=== PATIENT | female | born 1935 | race Caucasian/White ===

== ENCOUNTER 2016-08-20 13:27 | Observation (INO) ==
[2016-08-20 14:10] LABS: Basophils % 0.4 %; Eosinophils # 0.1 K/mcL (0.0-0.6); Eosinophils % 1.4 %; Hematocrit 37.7 % (35.3-44.9); Hemoglobin 11.5 g/dL (11.5-15.4); Immature Granulocytes % 0.4 % (0-4); Lymphocytes # 1.1 K/mcL (0.6-4.6); Lymphocytes % 11.6 %; Mean Corpuscular HGB Conc 30.5 g/dL (31.6-35.5); Mean Corpuscular Hemoglobin 25.3 pg (28.0-33.3); Mean Platelet Volume 13.2 fL (9.4-12.4); Monocytes # 0.4 K/mcL (0.0-1.3); Neutrophils # 7.7 K/mcL (1.6-8.9); Platelet Count 227 K/mcL (140-400); Red Blood Count 4.54 M/mcL (3.82-4.97); Red Cell Distribution Width 13.5 % (11.5-14.5); Segmented Neutrophils % 82.2 %
[2016-08-20 14:25] LABS: Albumin 3.6 g/dL (3.5-5.0); Albumin/Globulin Ratio 0.9 (1.1-2.2); Alkaline Phosphatase 70 Units/L (38-126); Aspartate Amino Transferase 7 Units/L (5-34); BUN/Creatinine Ratio 14 (6-26); Bilirubin,Total 0.3 mg/dL (0.2-1.2); Blood Urea Nitrogen 29 mg/dL (7-20); Calcium 9.7 mg/dL (8.6-10.8); Carbon Dioxide 26 mEq/L (19-29); Chloride 95 mEq/L (98-109); Globulin 4.2 g/dL (2.4-3.5); Osmolality,Calculated 302 (280-300); Potassium 5.2 mEq/L (3.5-4.5); Sodium 130 mEq/L (136-145); Total Protein 7.8 g/dL (6.0-8.3); eGFR For African Americans 29 (> 60); eGFR For Non-African Americans 24 (> 60)
[2016-08-20 14:27] LABS: Alanine Aminotransferase < 6 Units/L (0-55)
[2016-08-20 14:29] LABS: Glucose 572 mg/dL (70-99)
--- NOTE | 2016-08-20 15:05 | Emergency Department Note ---
Disposition Clinical Impression: Diabetes mellitus, Cellulitis in diabetic foot, Frail elderly, Uncontrolled diabetes mellitus, Renal failure, Hyperkalemia, Weakness Disposition: Admitted As Inpatient Referrals: NO,PCP [Non-Partnered Physician] - Forms: ED Satisfaction Letter General Adult HPI - General Chief complaint: ED Extremity Problem,Nontraumatic Stated complaint: INFECTED TOE Time Seen by Provider: 08/20/16 15:04 Source: patient Limitations: no limitations - History of Present Illness HPI Narrative: 80-year-old female history of diabetes mellitus comes in with concerns for an infected toe, she has left foot redness. There is no history of trauma. The patient has also been coughing a lot, she has chronic diarrhea which has been nonbloody she is not anticoagulated. There is no history of fever chest pain or shortness of breath no abdominal pain or vomiting. The patient is somewhat demented per history, she also has parkinsonism, the patient has been progressively weaker, she has a history of renal insufficiency but is not on dialysis. There is no history of fall or syncope. No history of headache convulsion or rash. No difficulty moving arms or legs independently. No slurred speech or unilateral arm or leg weakness or numbness. The patient's daughter is here with her she is concerned about infection of the left foot and generalized weakness. The patient's daughter augments the history. Pain Scale: 10 - Related Data Home Medications Medication Instructions Recorded Confirmed Citalopram Hydrobromide [Celexa] 20 mg PO DAILY 11/27/14 04/20/16 Aspirin [Adult Low Dose Aspirin EC] 81 mg PO QAM 02/21/15 04/20/16 Atorvastatin [Lipitor] 10 mg PO HS 02/21/15 04/20/16 Insulin Aspart Prot/Insuln Asp 1 unit SQ TIDAC PRN 02/21/15 04/20/16 [Novolog Mix 70-30 Flexpen Syrn] Insulin Glargine,Hum.rec.anlog 12 unit SQ HS 02/21/15 04/20/16 [Lantus Solostar] Levothyroxine [Synthroid] 25 mcg PO QAM 02/21/15 04/20/16 Spironolact/Hydrochlorothiazid 1 each PO QAM 02/21/15 04/20/16 [Aldactazide 25-25 Tablet] Previous Rx's Medication Instructions Recorded HYDROcodone/Acet 5/325 mg [White 1 tab PO Q4H PRN #15 tab 04/20/16 5-325 mg] Allergies Allergy/AdvReac Type Severity Reaction Status Date / Time codeine Allergy Rash Verified 04/20/16 17:13 All systems ED: reviewed and negative except as stated. Past Medical History - Past Medical History Medical history: Reports: COPD, CVA, dementia, diabetes, hyperlipidemia, hypertension, renal disease Surgical history: Reports: cholecystectomy Psychiatric history: Reports: anxiety, depression [employer] PLANT ATTENDANT history: Reports: no SEW[employer] PLANT ATTENDANT history - Social History Smoking Status: Current every day smoker Smokeless Tobacco Status: No Alcohol use: Reports: none Drug use: Reports: none Physical Exam - General Limitations: no limitations General appearance: alert, in no apparent distress - Head Head exam: atraumatic, normocephalic, normal inspection - Eye Eye exam: Present: normal appearance, PERRL, EOMI, miosis. Absent: scleral icterus, conjunctival injection, mydriasis, periorbital swelling - ENT ENT exam: normal exam, normal oropharynx, mucous membranes moist, TM's normal bilaterally, normal external ear exam - Neck Neck exam: Present: normal inspection, full ROM, trachea midline. Absent: tenderness, meningismus - Chest Chest inspection: Present: symmetric chest wall rise. Absent: tenderness - Respiratory Respiratory exam: Present: normal lung sounds bilaterally. Absent: respiratory distress, wheezes, stridor, accessory muscle use, prolonged expiratory phase - Cardiovascular Cardiovascular exam: Present: regular rate, normal rhythm, normal heart sounds - Abdominal Exam Abdominal exam: Present: soft, Non-Tender, normal bowel sounds. Absent: tenderness, distention, guarding, rebound, rigidity, pulsatile mass - Extremities Exam Extremities exam: Present: normal inspection, full ROM, normal capillary refill. Absent: tenderness, joint swelling, calf tenderness - Expanded Lower Extremity Exam Hip/Pelvis exam: Present: full ROM. Absent: tenderness Upper leg exam: Present: full ROM. Absent: tenderness Knee exam: Present: full ROM. Absent: tenderness Lower leg exam: Present: full ROM. Absent: tenderness, Homans' sign Ankle exam: Present: full ROM. Absent: tenderness Foot/toe exam: Present: full ROM, swelling, erythema, other (The left foot shows some erythema about the heel lateral foot and around the great toe. There is no evidence of acute neurovascular or neuromuscular compromise. The right foot is generally unremarkable.). Absent: tenderness Neurovascular/Tendon exam: Present: normal capillary refill. Absent: motor deficit, sensory deficit, tendon deficit, extremity cold to touch, pallor - Back Exam Back exam: Present: normal inspection, full ROM. Absent: tenderness, CVA tenderness (R), CVA tenderness (L), vertebral tenderness - Neurological Exam Neurological exam: Present: alert, CN II-XII intact. Absent: motor sensory deficit - Psychiatric Psychiatric exam: Present: normal affect - Skin Skin exam: Present: warm, dry, intact, normal color. Absent: rash, cyanosis, diaphoresis, erythema, pallor, mottled Course Vital Signs Temperature 98.3 F 08/20/16 13:28 Pulse Rate 93 08/20/16 13:28 Respiratory Rate 22 08/20/16 13:28 Blood Pressure 118/66 08/20/16 13:28 O2 Sat by Pulse Oximetry 96 08/20/16 13:28 Temperature 98.3 F 08/20/16 13:28 Pulse Rate 82 08/20/16 16:05 Respiratory Rate 16 08/20/16 15:20 Blood Pressure 145/70 08/20/16 16:05 O2 Sat by Pulse Oximetry 98 08/20/16 16:05 Oxygen Delivery Oxygen Delivery Room Air Medical Decision Making - [facility] Narrative Medical decision making narrative: The patient is elderly, has apparent uncontrolled diabetes mellitus, as well as a left foot infection, she also has significant renal insufficiency. There is a negative White cell count and lactate, I do not believe the patient is frankly septic, it is notable that her CRP is 57 however, clindamycin and IV fluids were given. She described a cough, EKG and chest x-ray are negative, she has known COPD. Based on the patient's age, history of metabolic disorder/ diabetes mellitus, glucose of 572 indicating poor control, cellulitis left foot , age and multiple comorbidities, as well as renal failure, I thought it be appropriate to admit the patient to the hospital. I discussed the case with the hospitalist on-call who is accepted the patient to their care. - Lab Data Lab results reviewed: Yes I reviewed the patient's lab results. Result diagrams: 08/20/16 14:02 08/20/16 14:02 Lab Results 08/20/16 08/20/16 08/20/16 Range/Units 14:02 14:02 14:02 WBC 9.4 (4.3-11.1) K/mcL RBC 4.54 (3.82-4.97) M/mcL Hgb 11.5 (11.5-15.4) g/dL Hct 37.7 (35.3-44.9) % MCV 83.0 (83.0-100.0) fL MCH 25.3 L (28.0-33.3) pg MCHC 30.5 L (31.6-35.5) g/dL RDW 13.5 (11.5-14.5) % Plt Count 227 (140-400) K/mcL MPV 13.2 H (9.4-12.4) fL Immature Gran % 0.4 (0-4) % Seg Neutrophils % 82.2 % Lymphocytes % 11.6 % Monocytes % 4.0 % Eosinophils % 1.4 % Basophils % 0.4 % Neutrophils # 7.7 (1.6-8.9) K/mcL Lymphocytes # 1.1 (0.6-4.6) K/mcL Monocytes # 0.4 (0.0-1.3) K/mcL Eosinophils # 0.1 (0.0-0.6) K/mcL Basophils # 0.0 (0.0-0.2) K/mcL Sodium 130 L (136-145) mEq/L Potassium 5.2 H (3.5-4.5) mEq/L Chloride 95 L (98-109) mEq/L Carbon Dioxide 26 (19-29) mEq/L BUN 29 H (7-20) mg/dL Creatinine 2.01 H (0.57-1.11) mg/dL Est GFR ( Amer) 29 L (> 60) Est GFR (Non-Af Amer) 24 L (> 60) BUN/Creatinine Ratio 14 (6-26) Glucose 572 H* (70-99) mg/dL Calculated Osmolality 302 H (280-300) Lactic Acid 0.8 (0.5-2.2) mmol/L Calcium 9.7 (8.6-10.8) mg/dL Total Bilirubin 0.3 (0.2-1.2) mg/dL AST 7 (5-34) Units/L ALT < 6 (0-55) Units/L Alkaline Phosphatase 70 (38-126) Units/L Troponin I (0-0.03) ng/mL C-Reactive Protein 57 H (Less than 5) mg/L B-Natriuretic Peptide (0-100) pg/mL Serum Total Protein 7.8 (6.0-8.3) g/dL Albumin 3.6 (3.5-5.0) g/dL Globulin 4.2 H (2.4-3.5) g/dL Albumin/Globulin Ratio 0.9 L (1.1-2.2) 08/20/16 08/20/16 Range/Units 16:00 16:00 WBC (4.3-11.1) K/mcL RBC (3.82-4.97) M/mcL Hgb (11.5-15.4) g/dL Hct (35.3-44.9) % MCV (83.0-100.0) fL MCH (28.0-33.3) pg MCHC (31.6-35.5) g/dL RDW (11.5-14.5) % Plt Count (140-400) K/mcL MPV (9.4-12.4) fL Immature Gran % (0-4) % Seg Neutrophils % % Lymphocytes % % Monocytes % % Eosinophils % % Basophils % % Neutrophils # (1.6-8.9) K/mcL Lymphocytes # (0.6-4.6) K/mcL Monocytes # (0.0-1.3) K/mcL Eosinophils # (0.0-0.6) K/mcL Basophils # (0.0-0.2) K/mcL Sodium (136-145) mEq/L Potassium (3.5-4.5) mEq/L Chloride (98-109) mEq/L Carbon Dioxide (19-29) mEq/L BUN (7-20) mg/dL Creatinine (0.57-1.11) mg/dL Est GFR ( Amer) (> 60) Est GFR (Non-Af Amer) (> 60) BUN/Creatinine Ratio (6-26) Glucose (70-99) mg/dL Calculated Osmolality (280-300) Lactic Acid (0.5-2.2) mmol/L Calcium (8.6-10.8) mg/dL Total Bilirubin (0.2-1.2) mg/dL AST (5-34) Units/L ALT (0-55) Units/L Alkaline Phosphatase (38-126) Units/L Troponin I 0.01 (0-0.03) ng/mL C-Reactive Protein (Less than 5) mg/L B-Natriuretic Peptide 63 (0-100) pg/mL Serum Total Protein (6.0-8.3) g/dL Albumin (3.5-5.0) g/dL Globulin (2.4-3.5) g/dL Albumin/Globulin Ratio (1.1-2.2) - Radiology Data Radiology results reviewed: Yes I reviewed the patient's radiology results.
[2016-08-20] MEDS ORDERED: 0.9 % Sodium Chloride 1,000 ML IVC ONE ×2 (15:06→19:29)
[2016-08-20 15:25] LABS: C-Reactive Protein 57 mg/L (Less than 5)
[2016-08-20] MEDS ORDERED: Clindamycin 300 MG in D5% in Water 50 ML IVPB ONE (15:25)
[2016-08-20] MEDS ORDERED: Insulin Regular, Human 100 UNIT/ML SQ ONE (15:27)
[2016-08-20] MEDS ORDERED: Clindamycin 300 MG in D5% in Water 50 ML IVPB SCH (16:00)
[2016-08-20] MEDS ORDERED: Acetaminophen 325 MG TABLET PO PRN (19:17)
[2016-08-20] MEDS ORDERED: Ondansetron 4 MG/2 ML VIAL IVP PRN (19:17)
[2016-08-20] MEDS ORDERED: Naloxone 0.4 MG/ML INJ IVP PRN (19:17)
[2016-08-20] MEDS ORDERED: D5% in Water 1,000 ML IVC PRN (19:23)
[2016-08-20] MEDS ORDERED: *HR* Dextrose 50 % in Water (Syg) 50 ML SYRINGE IVP PRN (19:23)
[2016-08-20] MEDS ORDERED: Dextrose Gel 15 GM PO PRN ×2 (19:23)
[2016-08-20] MEDS ORDERED: Calcium Gluconate 1,000 MG in D5% in Water 100 ML IVPB ONE (19:30)
--- NOTE | 2016-08-20 19:52 | Event Note ---
Date of Encounter: 08/20/16 Time of Encounter: 19:50 Patient seen and examined with nurse practitioner. Hyperglycemic hypos Soni state and acute kidney injury. Will give 2 L bolus of normal saline. No gap. She was hypercalcemic potassium 5.2 this will be corrected and rechecked. There was concern for cellulitis. There is slight redness in the right great toe but no warmth. There is also some softening of tissue in the heel which I suspect is due to pressure effect. I would hold of antibiotics for now. Check urine analysis. Podiatry to see the patient
--- NOTE | 2016-08-20 19:57 | Internal Med History&Physical ---
Date of Encounter: 08/20/16 Time of Encounter: 18:30 Assessment and Plan (1) Foot pain, left Current visit: Yes Status: Acute Patient presents with acute pain in left great toe as well as left heel. Patient currently has thick unkept toenails on left great toe which may be contributed to her pain. Left heel pain presents as possible diabetic foot ulcer. Patient presently is a mild split in the skin with tenderness. Patient received IV clindamycin in the ED. Podiatry consult ordered and discussed with Dr. Olsen. Will continue IV antibiotics based on blood culture results and recommendations of Dr. Olsen. Currently, patient's WBC is 9.4, temp is 98.3F, RR is 16, HR is 82, and SpO2 is 98% on room air. Patient to be monitored closely for signs of infection or increased discomfort. Patient placed as falls precautions/up with assist/bedrest with bedside commode with assist only. (2) Uncontrolled diabetes mellitus Current visit: Yes Status: Acute Patient presents with history of uncontrolled diabetes mellitus. She reports she was previously on insulin but her PCP placed her on oral hyperglycemics. Blood glucose on admission to ED was 572. Following 10 units of insulin, blood glucose was 300. Patient to have blood glucose monitoring and low-dose insulin correction dosing every 4. Diabetic diet ordered. Diabetic education consult placed. Qualifiers: Diabetes mellitus type: type 2 Diabetes mellitus complication status: with kidney complications Diabetes mellitus complication detail: with chronic kidney disease Diabetes mellitus prison insulin use: unspecified long term care pharmacist insulin use status Chronic kidney disease stage: stage 4 (severe) Qualified Code(s): E11.22 - Type 2 diabetes mellitus with diabetic chronic kidney disease ; E11.65 - Type 2 diabetes mellitus with hyperglycemia; N18.4 - Chronic kidney disease, stage 4 (severe) (3) Hyperkalemia Current visit: Yes Status: Acute Patient presents with acute hyperkalemia. Patient to receive IV fluids judiciously. Will monitor potassium level in follow-up labs. (4) Weakness Current visit: Yes Status: Acute Patient presents with generalized weakness. Patient to be placed on falls precautions/up with assist/bedrest with bedside commode with assist only due to weakness and left foot pain. (5) Hypertension Current visit: Yes Status: Chronic Patient presents with history of chronic hypertension. Will monitor patient's BP and vital signs and continue her spironolactone. Qualifiers: Hypertension type: essential hypertension Qualified Code(s): I10 - Essential (primary) hypertension (6) Chronic renal disease, stage 4, severely decreased glomerular filtration rate (GFR) between 15-29 mL/min/1.73 square meter Current visit: Yes Status: Chronic Patient presents with history of chronic kidney disease, stage IV with current GFR of 24. Patient currently has uncontrolled diabetes as well which is contributing to her acute on chronic CKD status. Will monitor I&O and daily weight and use IV fluids judiciously. Renal diet ordered. (7) Hyperlipidemia Current visit: Yes Status: Acute Patient presents with history of chronic hyperlipidemia. Lipid panel ordered. Will continue patient's TriCor and Lipitor. Qualifiers: Hyperlipidemia type: pure hypercholesterolemia Qualified Code(s): E78.00 - Pure hypercholesterolemia, unspecified; E78.0 - Pure hypercholesterolemia (8) Thyroid disease Current visit: Yes Status: Acute Patient presents with history of chronic thyroid disease. Will continue patient 's Synthroid. (9) DVT prophylaxis Current visit: Yes Status: Acute Patient placed on DVT prophylaxis due to admission protocol and current bedrest status. Heparin 5,000 units SQ Q8 ordered. Internal Medicine - H&P: HPI Chief complaint: Painful toe and heel on left foot Admitted From: Emergency Dept Plans for Post Hospital Care: Home History of present illness: Mrs. Guzmán is a 80 year old female who presents from the ED with chief complaint of pain in her left great toe and left heel. Both toe and heel are edematous and erythematous, as well as painful with palpation. She states that the pain began approximately one week ago and is accompanied by nausea but no vomiting. She also states that she has pain in her left ear that she feels may be infected. Patient is currently hard of hearing bilaterally and states that she does not wear hearing aids because they broke. Patient's blood glucose is 572 on admission to the ED and she states that her doctor took her off insulin and put her on an oral pill for her diabetes. She states that her blood glucose is usually around 200 in the morning when she checks it before taking her Januvia. Patient's med list also includes Lantus Solostar. She reports cough and mild abdominal pain that accompanies the nausea but denies vomiting, fever, recent illness, numbness, tingling, chest pain, pre-syncope, or syncope. She also reports some fall history. Mrs. Guzmán has a medical history of COPD, CVA in 1998 with continued weakness in left arm, dementia, diabetes, hyperlipidemia , hypertension, thyroid disease, and renal disease. She also reports anxiety and depression. Patient states she was a former smoker smoking 1-1/2 packs per day but quit one year ago. Patient received IV clindamycin in the ED for suspicion of infected toe. Will consider continuing IV antibiotics based on blood culture results. Patient is at moderate risk based on her current acute on chronic CKD and foot pain. She will be placed as observation status with consult to podiatry ordered and discussed with Dr. Olsen. Patient to receive IV fluids, pain medication, blood glucose monitoring and low-dose correction insulin every 4, IV Zofran PRN and IV Protonix 40 mg daily, and will be placed as falls precautions/up with assist/bedrest with bedside commode with assist due to instability related to left foot pain. Patient's current GFR is 24 and creatinine is 2.01. IV fluids to be used judiciously to advanced renal disease. Patient to be monitored closely. Time spent with patient greater than 40 minutes. Past Med Surg Social Fam HX - Past Medical History Source: patient Medical history: COPD, CVA, dementia, diabetes, hyperlipidemia, hypertension, renal disease Psychiatric history: anxiety, depression - Past Surgical History Surgical History: cholecystectomy - Social History Smoking Status: Former smoker Packs per day: 1 /2 PPD - Reports quitting 1 year ago Smokeless Tobacco Status: No Alcohol use: none Drug use: none Current living situation: Home, With Family Activity Level: Uses cane/walker Recent Out of Country Travel Within the Last 8 Weeks: No Exposure or Possible Exposure to Illness During Travel: No - Family History Mother Race: Family Member Ethnicity: Non- Living Status: Age at : 62 Cause of : DM complications Hx Family Endocrine Disorder: Yes (DM) Hx Family Neuromuscular Disorders: No Hx Family Neurologic Disorders: No Hx Family HEENT Disorders: No Hx Family Autoimmune Disorders: No Father Race: Family Member Ethnicity: Non- Living Status: Age at : 90 Cause of : Cancer of the head Hx Family Cancer: Yes (Head) Brother Race: Family Member Ethnicity: Non- Living Status: Age at : 70 Cause of : Throat cancer Hx Family Cancer: Yes (Throat, Lung) Hx Family Endocrine Disorder: Yes (DM) Sister Race: Family Member Ethnicity: Non- Living Status: Still Living Hx Family Endocrine Disorder: Yes (DM) Internal Medicine - H&P: Meds Citalopram Hydrobromide [Celexa] 20 mg PO DAILY 11/27/14 [History] Aspirin [Adult Low Dose Aspirin EC] 81 mg PO QAM 02/21/15 [History] Atorvastatin [Lipitor] 10 mg PO HS 02/21/15 [History] Insulin Glargine,Hum.rec.anlog [Lantus Solostar] 12 unit SQ HS 02/21/15 [History ] Levothyroxine [Synthroid] 25 mcg PO QAM 02/21/15 [History] Spironolact/Hydrochlorothiazid [Aldactazide 25-25 Tablet] 1 each PO QAM [History] Carbidopa/Levodopa [Carbidopa-Levodopa 25-100 Tab] 1 each PO TID 08/20/16 [ History] Cranberry Conc/C/Bacill Coag [Azo Cranberry Tablet] 1 each PO DAILY 08/20/16 [ History] Fenofibrate Nanocrystallized [Tricor] 48 mg PO DAILY 08/20/16 [History] Oxygen 2 l NS HS 08/20/16 [History] SitaGLIPtin [Januvia] 100 mg PO DAILY 08/20/16 [History] Allergies codeine Allergy (Verified 08/20/16 17:07) Rash All Systems PM: A 10-system review of systems was performed and is negative for pertinent findings except as documented above in the HPI. - Constitutional Constitutional: as per HPI, weakness, no chills, no fever(s), no night sweats - EENT Eyes: no change in vision, no discharge, no pain, no photophobia Ears: no ear discharge, no ear pain, no tinnitus Nose, mouth and throat: no dysphagia, no nasal discharge, no neck pain, no sore throat - Breasts Breasts: as per HPI - Cardiovascular Cardiovascular ROS IM: no chest pain, no diaphoresis, no dyspnea, no lightheadedness, no palpitations, no syncope - Respiratory Respiratory: as per HPI, cough, no dyspnea, no wheezing, no excessive phlegm production - Gastrointestinal Gastrointestinal: as per HPI, abdominal pain, nausea - Genitourinary Genitourinary: no change in urinary stream, no dysuria, no flank pain, no hematuria Menstruation: post menopausal - Musculoskeletal Musculoskeletal ROS IM: no numbness, no tingling - Integumentary Integumentary IM: erythema (Left great toe and heel), sores (Left great toe and heel), no rash, no unusual bruising - Neurological Neurological ROS: as per HPI, confusion, frequent falls, weakness, no convulsions, no focal weakness, no numbness, no tingling, no tremor(s) - Psychiatric Psychiatric: as per HPI, anxiety, depression - Endocrine Endocrine IM: as per HPI - Hematologic/Lymphatic Hematologic/Lymphatic: no easy bruising - Allergic/Immunologic Allergic/Immunologic: as per HPI - Constitutional Vitals: Temp Pulse Resp BP Pulse Ox 98.3 F 83 18 139/65 96 08/20/16 13:28 08/20/16 19:09 08/20/16 18:15 08/20/16 19:09 08/20/16 19:09 General appearance: Present: cooperative, A&O X 3, pleasant, no acute distress, obese, answers questions appropriately - Head Head exam: Present: atraumatic, normocephalic - Eye Eye exam: Present: PERRL, conjuntiva pink, sclera anicteric Pupils: Present: PERRL - ENT ENT exam: Present: normal exam, normal external ear exam - Neck Neck exam general surgery: Present: supple, trachea midline. Absent: lymphadenopathy - Respiratory Respiratory exam: Present: CTAB. Absent: accessory muscle use, rales, rhonchi, wheezes - Cardiovascular Cardiovascular exam: Present: RRR, +S1, +S2. Absent: diastolic murmur, gallop, rubs, systolic murmur - GI/Abdominal GI/Abdominal exam: Present: normal bowel sounds, soft, tenderness - Rectal Rectal exam: Present: deferred - Additional comments: exam deferred. - Extremities Exam Extremities exam: Present: tenderness (Left great toe and left heel), warm, radial pulses palpable and symetrical. Absent: calf tenderness, cyanotic, pedal edema - Back Exam Back exam: Present: normal inspection - Neurological Exam Neurological exam: Present: CN II-XII intact, oriented X3, no focal deficits. Absent: pronater drift, facial droop, speech deficit - Psychiatric Psychiatric exam: Present: normal affect, normal mood - Skin Skin exam: Present: dry, intact Internal Med - H&P Results - Labs CBC & Chem 7: 08/20/16 14:02 08/20/16 21:12 - EKG Data EKG shows normal: sinus rhythm - EKG Data Prior EKG available for review: yes When compared to previous EKG: there is no significant change EKG comments: 08/20/16 20:14 EKG dated 04/20/16 shows sinus rhythm. EKG dated 08/20/16 shows sinus rhythm with first-degree AV block and moderate intraventricular conduction delay. - Diagnostic Studies Chest x-ray Additional comments: Impressions Chest X-Ray 08/20/16 15:19 IMPRESSION: No acute cardiopulmonary process. D/ / Hilton Small MD / Hilton Small MD Interpreting Provider: Hilton Small MD Other Images Additional comments: Impressions Foot X-Ray 08/20/16 13:41 IMPRESSION: No erosive changes to suggest osteomyelitis. Diffuse osteopenia. Hallux valgus with bunion. D/ / 08/20/2016 14:30:24 George Lozano MD / earnold Interpreting Provider: George Lozano MD
[2016-08-20 20:06] LABS: Bilirubin,Urine Negative (Negative); Blood,Urine Negative (Negative); Clarity,Urine Clear (Clear); Color,Urine Yellow (Yellow); Glucose,Urine (UA) >=1000 mg/dL (Normal); Ketones,Urine Negative (Negative); Leukocyte Esterase,Urine Negative (Negative); Nitrite,Urine Negative (Negative); Protein,Urine Negative (Neg-Trace); Urobilinogen,Urine Normal (Normal)
[2016-08-20] MEDS: 0.9 % Sodium Chloride 1,000 ML IVC SCH (20:20)
[2016-08-20] MEDS ORDERED: Insulin LISPRO 300 UNITS/3 ML VIAL SQ SCH (21:00)
[2016-08-20] MEDS ORDERED: Insulin DETEMIR 100 UNIT/ML X5UNITS SQ SCH (21:00)
[2016-08-20 21:24] LABS: Beta-Hydroxybutyric Acid 0.19 mmol/L (0.02-0.27)
[2016-08-20 21:31] LABS: Calcium 8.7 mg/dL (8.6-10.8)
[2016-08-20 21:33] LABS: Potassium 3.7 mEq/L (3.5-4.5)
[2016-08-20] MEDS: Carbidopa/Levodopa 25/100 TABLET PO SCH (21:40)
[2016-08-20] MEDS: Insulin LISPRO 300 UNITS/3 ML VIAL SQ SCH (21:40)
[2016-08-21] MEDS: Insulin LISPRO 300 UNITS/3 ML VIAL SQ SCH ×3 (00:27→09:02)
[2016-08-21 05:19] LABS: Basophils % 0.3 %; Eosinophils # 0.3 K/mcL (0.0-0.6); Eosinophils % 3.2 %; Hematocrit 34.6 % (35.3-44.9); Hemoglobin 10.5 g/dL (11.5-15.4); Immature Granulocytes % 0.4 % (0-4); Lymphocytes # 3.1 K/mcL (0.6-4.6); Lymphocytes % 28.6 %; Mean Corpuscular HGB Conc 30.3 g/dL (31.6-35.5); Mean Corpuscular Hemoglobin 25.6 pg (28.0-33.3); Mean Corpuscular Volume 84.4 fL (83.0-100.0); Mean Platelet Volume 12.8 fL (9.4-12.4); Monocytes # 0.7 K/mcL (0.0-1.3); Monocytes % 6.2 %; Neutrophils # 6.6 K/mcL (1.6-8.9); Platelet Count 218 K/mcL (140-400); Red Cell Distribution Width 13.5 % (11.5-14.5); Segmented Neutrophils % 61.3 %
[2016-08-21 05:27] LABS: Activated Partial Thrombo Time 26.7 Seconds (26.0-36.0)
[2016-08-21 05:37] LABS: Calcium 8.9 mg/dL (8.6-10.8); Magnesium 1.5 mg/dL (1.6-2.6); Potassium 4.2 mEq/L (3.5-4.5)
[2016-08-21] MEDS: 0.9 % Sodium Chloride 1,000 ML IVC SCH (06:00)
[2016-08-21] MEDS ORDERED: Levothyroxine 25 MCG TABLET PO SCH (06:30)
[2016-08-21] MEDS ORDERED: Insulin LISPRO 300 UNITS/3 ML VIAL SQ SCH ×3 (07:30→21:00)
[2016-08-21] MEDS ORDERED: NON-FORMULARY MEDICATION 1 EACH EACH (Spironolact/Hydrochlorothiazid [Aldactazide 25-25 Ta PO SCH (09:00)
[2016-08-21] MEDS ORDERED: Pantoprazole 40 MG VIAL IVP SCH (09:00)
[2016-08-21] MEDS ORDERED: Aspirin Enteric Coated 81 MG Tablet PO SCH (09:00)
[2016-08-21] MEDS: Carbidopa/Levodopa 25/100 TABLET PO SCH ×2 (09:02→15:12)
[2016-08-21 11:16] VITALS: BP 121/63
--- NOTE | 2016-08-21 12:22 | Electrocardiograph Report ---
[place] [address] Test Date: 2016-08-20 Pat Name: Kesha Guzmán Department: 104 Room: 2A Gender: F Vp Global: : 1935 Requested By: Thien Ferrari Order Number: [id number] Reading MD: Matt Martinez MD Measurements Intervals [place] Rate: 82 P: 69 NM: 214 QRS: 78 QRSD: 114 T: 65 QT: 394 QTc: 432 Interpretive Statements SINUS RHYTHM WITH FIRST DEGREE AV BLOCK Electronically Signed On 08-21-2016 12:20:31 EDT by Matt Martinez MD
--- NOTE | 2016-08-21 13:01 | Podiatry Consult Note ---
Date of Encounter: 08/21/16 Time of Encounter: 12:00 Assessment and Plan (1) Chronic renal insufficiency, stage III (moderate) Status: Acute (2) Diabetes mellitus Status: Acute Qualifiers: Diabetes mellitus type: type 2 Diabetes mellitus complication detail: with chronic kidney disease Diabetes mellitus terminal worker insulin use: unspecified usp insulin use status Chronic kidney disease stage: stage 3 (moderate) (3) Foot pain, left Status: Acute Onychomycosis to bilateral great toes. Light periwound erythema to the proximal nail border of the left great toe secondary to thick, elongated and mycotic toe nail. Recommend toe nail debridement in outpatient clinic to alleviate pressure and prevent ulceration. Patient has a medical history significant for DM and is at a high risk category for self care. There is a small superficial crack in skin to left heel with light periwound erythema secondary to pressure. Discussed keeping both heels floated while in bed. Recommended use of Medix boots while in bed. Cleanse left heel daily with the application of triple antibiotic ointment and bandaid. Patient will f/u with me in Clinic this week for diabetic foot care. Patient and daughter verbalized understanding. Foot X-Ray 08/20/16 13:41 IMPRESSION: No erosive changes to suggest osteomyelitis. Diffuse osteopenia. Hallux valgus with bunion. D/ / 08/20/2016 14:30:24 [facility]ozano [facility] Interpreting Provider: George Lozano MD History of Present Illness HPI: Ms. Guzmán is a 80 year old female admitted to [facility] on 08/20/16 for left great toe pain and left heel pain. Patient has a medical history significant for DM, renal disease, CVA, hyperlipidemia, HTN, thyroid disease, and dementia. Patients blood sugar upon admission was 572. Patient is hard of hearing, her gaurdian who is her daughter was at the bedside along with grandchildren. Patient was started on Clindamycin in the ED for concerns of an infected left great toe. Patients daughter states she brought her Mom to the hospital due to color changes in her toes. Patient has other complaints of left heel pain. Patient uses a walker and is mainly non ambulatory since her spouse fiver years ago. Patient has been seen by Podiatry in the past, but patient has not been back for a few years due to her foot bleeding the last time she was there. No c/o fever, chills. Patient does c/o numbness/tingling to both feet. Past Med Surg Social Fam HX - Past Medical History Medical history: COPD, CVA, dementia, diabetes, hyperlipidemia, hypertension, renal disease Psychiatric history: anxiety, depression - Past Surgical History Surgical History: cholecystectomy - Social History Smoking Status: Former smoker Packs per day: 1 02/13 PPD - Reports quitting 1 year ago Smokeless Tobacco Status: No Alcohol use: none Drug use: none - Family History Father Race: Family Member Ethnicity: Non- Living Status: Age at : 90 Cause of : Cancer of the head Hx Family Cancer: Yes (Head) Brother Race: Family Member Ethnicity: Non- Living Status: Age at : 70 Cause of : Throat cancer Hx Family Cancer: Yes (Throat, Lung) Hx Family Endocrine Disorder: Yes (DM) Sister Race: Family Member Ethnicity: Non- Living Status: Still Living Hx Family Cancer: Yes (Breast CA, double mastectomy) Hx Family Endocrine Disorder: Yes (DM) Mother Race: Family Member Ethnicity: Non- Living Status: Age at : 62 Cause of : DM complications Hx Family Cardiac Disorders: No Hx Family Respiratory Disorders: No Hx Family Cancer: No Hx Family GI Disorders: No Hx Family Endocrine Disorder: Yes (DM) Hx Family Neuromuscular Disorders: No Hx Family Neurologic Disorders: No Hx Family HEENT Disorders: No Hx Family Autoimmune Disorders: No Medications and Allergies Citalopram Hydrobromide [Celexa] 20 mg PO DAILY 11/27/14 [History] Aspirin [Adult Low Dose Aspirin EC] 81 mg PO QAM 02/21/15 [History] Atorvastatin [Lipitor] 10 mg PO HS 02/21/15 [History] Insulin Glargine,Hum.rec.anlog [Lantus Solostar] 12 unit SQ HS 02/21/15 [History ] Levothyroxine [Synthroid] 25 mcg PO QAM 02/21/15 [History] Spironolact/Hydrochlorothiazid [Aldactazide 25-25 Tablet] 1 each PO QAM [History] Carbidopa/Levodopa [Carbidopa-Levodopa 25-100 Tab] 1 each PO TID 08/20/16 [ History] Cranberry Conc/C/Bacill Coag [Azo Cranberry Tablet] 1 each PO DAILY 08/20/16 [ History] Fenofibrate Nanocrystallized [Tricor] 48 mg PO DAILY 08/20/16 [History] Oxygen 2 l NS HS 08/20/16 [History] SitaGLIPtin [Januvia] 100 mg PO DAILY 08/20/16 [History] Sebastien/Poly/Ofe OINT [Triple Antibiotic Ointment] 1 appl TP QID #1 tube 08/21/16 [ Rx] Allergies codeine Allergy (Verified 08/20/16 17:07) Rash All Systems Reviewed: A 10-system review of systems was performed and is negative for pertinent findings except as documented above in the HPI. Physical Exam - Constitutional Vitals: Temp Pulse Resp BP Pulse Ox 97.9 F 86 18 121/63 95 08/21/16 11:14 08/21/16 11:14 08/21/16 11:14 08/21/16 11:14 08/21/16 11:14 Exam: Dermatologic: NAIL PATHOLOGY: Nails #1 bilaterally are thick, discolored, and mycotic. Light erythema to the proximal nail border of the left great toe with a dried scab. No streaking, no open area, No signs of bacterial infection.. Podiatry General Exam: General appearance: alert awake oriented X 3. Calm and pleasant, no acute distress.. Vascular: Pedal pulses +1/4 DP/PT , No evidence of cyanosis, pallor or rubor, Edema graded at 1+/4, Skin temperature warm, No varicosities or varicose veins noted, Homans Sign negative, capillary refill time is immediate to digits.. Neurologic: Sensation intact with light touch. Musculoskeletal: Muscle strength 4/5 and equal bilaterally.. Integument: Skin with decreased turgor, decreased subcutaneous tissue, skin thin and shiny with trophic changes associated with comorbidities as described in history. Small crack in left heel, light periwound erythema, skin is blanchable. No active bleeding, no drainage, no streaking, no warmth. No evidence of bacterial infection. Results - Labs Result Diagrams: 08/21/16 04:49 08/21/16 04:49 Labs: Abnormal lab results Hgb 10.5 g/dL (11.5-15.4) L 08/21/16 04:49 Hct 34.6 % (35.3-44.9) L 08/21/16 04:49 MCH 25.6 pg (28.0-33.3) L 08/21/16 04:49 MCHC 30.3 g/dL (31.6-35.5) L 08/21/16 04:49 MPV 12.8 fL (9.4-12.4) H 08/21/16 04:49 Creatinine 1.25 mg/dL (0.57-1.11) H 08/21/16 04:49 Est GFR ( Amer) 50 (> 60) L 08/21/16 04:49 Est GFR (Non-Af Amer) 41 (> 60) L 08/21/16 04:49 Glucose 107 mg/dL (70-99) H 08/21/16 04:49 POC Glucose 248 (58-89) H 08/21/16 11:20 Magnesium 1.5 mg/dL (1.6-2.6) L 08/21/16 04:49 C-Reactive Protein 57 mg/L (Less than 5) H 08/20/16 14:02 Globulin 4.2 g/dL (2.4-3.5) H 08/20/16 14:02 Albumin/Globulin Ratio 0.9 (1.1-2.2) L 08/20/16 14:02 HDL Cholesterol 31 mg/dL (40-59) L 08/21/16 04:49 Urine Glucose (UA) >=1000 mg/dL (Normal) H 08/20/16 19:55 H & H 08/21/16 Range/Units 04:49 Hgb 10.5 L (11.5-15.4) g/dL Hct 34.6 L (35.3-44.9) % All other labs normal. Consult Discharge Plan - Plan Instructions: Antibacterial Combination (On the skin), Diabetes Mellitus Type 2 in Adults (DC) Additional Instructions: Follow-up with podiatry for outpatient treatment within one week Referrals: Mauro Smith MD [Primary Care Provider] - (web request) Prescriptions: Sebastien/Poly/Ofe OINT [Triple Antibiotic Ointment] 1 appl TP QID #1 tube
--- NOTE | 2016-08-21 14:46 | Discharge Summary ---
<Basil Manning - Last Filed: 08/21/16 15:41> Date of Encounter: 08/21/16 Time of Encounter: 14:44 - Discharge Diagnosis (1) Cellulitis in diabetic foot Priority: Primary Status: Acute (2) Diabetes mellitus Priority: Primary Status: Chronic Qualifiers: Diabetes mellitus type: type 2 Diabetes mellitus complication status: without complication Diabetes mellitus skilled nursing insulin use: with terminal computer operator use Qualified Code(s): E11.9 - Type 2 diabetes mellitus without complications ; Z79.4 - parts counterman (current) use of insulin (3) Chronic renal disease, stage 4, severely decreased glomerular filtration rate (GFR) between 15-29 mL/min/1.73 square meter Priority: Secondary Status: Chronic (4) Hyperkalemia Priority: Secondary Status: Acute (5) Hypertension Priority: Secondary Status: Chronic Qualifiers: Hypertension type: essential hypertension Qualified Code(s): I10 - Essential (primary) hypertension (6) Thyroid disease Priority: Secondary Status: Acute - Discharge Medications Prescriptions: Sebastien/Poly/Ofe OINT [Triple Antibiotic Ointment] 1 appl TP QID #1 tube Home Medications: Citalopram Hydrobromide [Celexa] 20 mg PO DAILY 11/27/14 [History] Aspirin [Adult Low Dose Aspirin EC] 81 mg PO QAM 02/21/15 [History] Atorvastatin [Lipitor] 10 mg PO HS 02/21/15 [History] Insulin Glargine,Hum.rec.anlog [Lantus Solostar] 12 unit SQ HS 02/21/15 [History ] Levothyroxine [Synthroid] 25 mcg PO QAM 02/21/15 [History] Spironolact/Hydrochlorothiazid [Aldactazide 25-25 Tablet] 1 each PO QAM [History] Carbidopa/Levodopa [Carbidopa-Levodopa 25-100 Tab] 1 each PO TID 08/20/16 [ History] Cranberry Conc/C/Bacill Coag [Azo Cranberry Tablet] 1 each PO DAILY 08/20/16 [ History] Fenofibrate Nanocrystallized [Tricor] 48 mg PO DAILY 08/20/16 [History] Oxygen 2 l NS HS 08/20/16 [History] SitaGLIPtin [Januvia] 100 mg PO DAILY 08/20/16 [History] Sebastien/Poly/Ofe OINT [Triple Antibiotic Ointment] 1 appl TP QID #1 tube 08/21/16 [ Rx] Allergies/Adverse Reactions: Allergies codeine Allergy (Verified 08/20/16 17:07) Rash Date of admission: 08/20/16 18:26 Primary care physician: Mauro Smith MD Consults: 08/20/16 19:40 Consult to Senior Production Planner [CONS] Routine Comment: Reason for Consult: Patient has history of uncontrolled diabetes 08/20/16 19:42 Consult to Podiatry [CONS] Routine Consulting Provider: Podiatry [facility] Reason for Consult: Patient has infected toe and area on left heel that is painful with split in skin. Could be infected or the start of a pressure ulcer. Call Completed: Yes 08/21/16 11:40 Consult to Metal Handler [CONS] Routine Reason for SW Consult: Home placement Discharging clinician: Basil Manning Anticipated date of discharge: 08/21/16 - Patient Status Disposition: Home, Self-Care Condition: Good Functional capacity at discharge: uses cane/walker Overall status at discharge: patient is back to baseline - Discharge Instructions Instructions: Antibacterial Combination (On the skin), Diabetes Mellitus Type 2 in Adults (DC) Follow Up With: Mauro Smith MD [Primary Care Provider] - (web request) Additional Instructions: Follow-up with podiatry for outpatient treatment within one week - Diet and Activity Activity: increase activity as tolerated, resume usual activities as tolerated Diet: diabetic diet Hospital course: Ms. Guzmán is a 80 year old female is to [facility] emergency department with the complaint of left great toe redness. Patient is a type II diabetic and states that she has noticed erythema, warmth, pain in her left lateral great toe as well has her left heel. She denies fevers, chills , nausea, vomiting, discharge. The emergency department revealed vital signs stable, afebrile, WBC of 9.4. Glucose of 572, sodium of 130, potassium of 5.2, chloride of 95, BUN/creatinine of 29/2.01, urine glucose greater than 1000. X- ray of the foot was negative for osteomyelitis. Patient was started on IV clindamycin 300 mg, and she was admitted to the medical floor diabetic foot infection. Podiatry was consulted and determined that patient should follow-up upon discharge for treatment of a foot wound. Patient was given triple antibiotic ointment, and instructed to use 4 times per day. Patient is medically stable on day of discharge. - Time Spent with Patient Total time spent providing and/or coordinating discharge services: - Constitutional Vitals: Temp Pulse Resp BP Pulse Ox 97.9 F 86 18 121/63 95 08/21/16 11:14 08/21/16 11:14 08/21/16 11:14 08/21/16 11:14 08/21/16 11:14 General appearance: Present: cooperative, A&O X 3, pleasant, no acute distress, obese, answers questions appropriately Exam: Gen.: Vitals noted. No acute distress. AAOx3. HEENT: PERRL/EOMI, oropharynx clear, Normocephalic, atraumatic. Moist Mucous membranes Neck: Supple. No adenopathy. Cardiac: RRR, no murmur, +S1/S2 Pulmonary: CTA bilaterally, no wheezes, rales or rhonchi, equal chest expansion Abdomen: soft, nontender, BS noted, no guarding Back: Nontender throughout. MSK: ROM intact, no joint swelling noted Extremities: Bilateral foot showed no erythema, edema. No visible lesions. no BLE edema, nontender calf, no cyanosis or clubbing Neuro: A&Ox3, moves all extremities, no focal deficits Psych: Appropriate mood and behavior <Dennis Griffith - Last Filed: 08/21/16 16:21> Date of Encounter: 08/21/16 - Discharge Diagnosis (1) Cellulitis of great toe, left Priority: Primary Status: Acute (2) Foot pain, left Priority: Primary Status: Acute (3) Chronic renal disease, stage 4, severely decreased glomerular filtration rate (GFR) between 15-29 mL/min/1.73 square meter Status: Chronic (4) Diabetes mellitus Status: Chronic Qualifiers: Diabetes mellitus type: type 2 Diabetes mellitus complication status: with neurologic complications Diabetes mellitus complication detail: with polyneuropathy Diabetes mellitus skilled nursing insulin use: with skilled nursing use Qualified Code(s): E11.42 - Type 2 diabetes mellitus with diabetic polyneuropathy; Z79.4 - penitentiary (current) use of insulin (5) Hypertension Status: Chronic Qualifiers: Hypertension type: essential hypertension Qualified Code(s): I10 - Essential (primary) hypertension Date of admission: 08/20/16 18:26 Primary care physician: Mauro Smith MD Consults: 08/20/16 19:40 Consult to Senior Production Planner [CONS] Routine Comment: Reason for Consult: Patient has history of uncontrolled diabetes 08/20/16 19:42 Consult to Podiatry [CONS] Routine Consulting Provider: Podiatry [facility] Reason for Consult: Patient has infected toe and area on left heel that is painful with split in skin. Could be infected or the start of a pressure ulcer. Call Completed: Yes 08/21/16 11:40 Consult to Metal Handler [CONS] Routine Reason for SW Consult: Home placement Hospital course: Ms. Guzmán is a 80 year old female - Time Spent with Patient Total time spent providing and/or coordinating discharge services: - Constitutional Vitals: Temp Pulse Resp BP Pulse Ox 97.9 F 86 18 121/63 95 08/21/16 11:14 08/21/16 11:14 08/21/16 11:14 08/21/16 11:14 08/21/16 11:14 - Attending Attestation I examined this patient and my medical decision-making was reviewed with the Resident Physician on 08/21/16. I agree with the documented findings, disposition and treatment plan as described except to the extent set forth below. Ms. Guzmán has been in observation for possible foot infection. She has been afebrile and vitals stable. She has been seen podiatry and no need for systemic abx. Exam Alert. Comfortable Mucus membranes moist Heart reg No wheeze Plan D/C today Follow up with PCP and podiatry.
== END 2016-08-21 16:13 | disposition home or self-care (01) ==
LOC: 2ANU 13:27 → EMEROO 13:27 → 2ANU 19:27
PROVIDERS: ADMIT Family Medicine; ATTEND Internal Medicine

== ENCOUNTER 2017-01-23 15:41 | Inpatient (IN) ==
[2017-01-23] MEDS ORDERED: Acetaminophen 325 MG TABLET PO PRN ×2 (17:40→21:34)
[2017-01-23] MEDS ORDERED: Naloxone 0.4 MG/ML INJ IVP PRN ×2 (17:40→21:36)
[2017-01-23] MEDS ORDERED: 0.9 % Sodium Chloride 1,000 ML IVC SCH (17:45)
[2017-01-23] MEDS ORDERED: Ondansetron 4 MG/2 ML VIAL IVP PRN (21:36)
[2017-01-23] MEDS ORDERED: *HR* Morphine 2 MG/ML SYRINGE IVP PRN (21:36)
[2017-01-23] MEDS ORDERED: Dextrose Gel 15 GM PO PRN ×2 (21:37)
[2017-01-23] MEDS ORDERED: D5% in Water 1,000 ML IVC PRN (21:37)
[2017-01-23] MEDS ORDERED: *HR* Dextrose 50 % in Water (Syg) 50 ML SYRINGE IVP PRN (21:37)
--- NOTE | 2017-01-23 21:54 | Internal Med History&Physical ---
Date of Encounter: 01/23/17 Time of Encounter: 21:51 Assessment and Plan (1) Colitis Current visit: No Status: Acute consider refractory c.diff IVF clears for now lactate wnl, trend (2) C. difficile colitis Current visit: No Status: Acute start IV flagyl, increased PO vanco to 250 QID, dificid overnight consult ID for further anti-microbial adjustment repeat C.diff (3) Diabetes mellitus Current visit: No Status: Chronic hold home sulfonylurea ISS for now (moderate dose) given decreased PO intake on clears and adjust accordingly Qualifiers: Diabetes mellitus type: type 2 Diabetes mellitus complication detail: with chronic kidney disease Diabetes mellitus chcf insulin use: with chcf use Chronic kidney disease stage: stage 3 (moderate) Qualified Code(s) : E11.22 - Type 2 diabetes mellitus with diabetic chronic kidney disease; N18.3 - Chronic kidney disease, stage 3 (moderate); Z79.4 - moth exterminator (current) use of insulin (4) Hypertension Current visit: No Status: Chronic continue med Qualifiers: Hypertension type: essential hypertension Qualified Code(s): I10 - Essential (primary) hypertension Internal Medicine - H&P: HPI Chief complaint: Abdo pain, diarrhea History of present illness: Ms. Guzmán is a 81 year old female who presents with recurrent lower abdo pain and diarrhea. Recent hx of C.diff She reports non-bloody diarrhea x 2 weeks with associated lower abdo pain and somewhat decrease appetite. She is having diarrhea approx 6 x daily, water in nature, non-bloody. Per record, she was hospitalized in acute care in [place] , December 26- after presenting with C. difficile diarrhea. She was started on oral vancomycin. Her diarrhea had minimal improvement so she was changed to Dificid and bismuth subsalicylate was added on January 02. On January 11 she was discharged home. On review, she has chronic nocturnal oxygen but don't known amount. CT/CT abd pelvis wo no iv no oral IMPRESSION: Nonspecific pancolitis. Possibilities include infectious colitis, pseudomembranous colitis, and inflammatory bowel disease. The presence of submucosal fat infiltration can be seen in the setting of underlying chronic colitis Past Med Surg Social Fam HX - Past Medical History Medical history: COPD, CVA, dementia, diabetes, hyperlipidemia, hypertension, renal disease, other Psychiatric history: anxiety, depression - Past Surgical History Surgical History: cholecystectomy - Social History Smoking Status: Former smoker Smokeless Tobacco Status: No Alcohol use: none Drug use: none - Family History Father Family Member Ethnicity: Non- Living Status: Hx Family Cancer: Yes Brother Family Member Ethnicity: Non- Living Status: Hx Family Cancer: Yes (Throat lung) Hx Family Endocrine Disorder: Yes (DM) Sister Family Member Ethnicity: Non- Living Status: Still Living Hx Family Cancer: Yes (Breast CA, Dbl Mastectomy) Hx Family Endocrine Disorder: Yes (DM) Mother Family Member Ethnicity: Non- Living Status: Hx Family Cardiac Disorders: No Hx Family Respiratory Disorders: No Hx Family Cancer: No Hx Family GI Disorders: No Hx Family Endocrine Disorder: Yes Hx Family Neuromuscular Disorders: No Hx Family Neurologic Disorders: No Hx Family HEENT Disorders: No Hx Family Autoimmune Disorders: No Internal Medicine - H&P: Meds Levothyroxine [Synthroid] 25 mcg PO QAM 02/21/15 [History] Carbidopa/Levodopa [Carbidopa-Levodopa 25-100 Tab] 1 each PO TID 08/20/16 [ History] Cranberry Conc/C/Bacill Coag [Azo Cranberry Tablet] 1 each PO DAILY PRN [History] Fenofibrate Nanocrystallized [Tricor] 48 mg PO QPM 08/20/16 [History] Insulin ASPART [NovoLOG] 0 unit SQ TIDWM 09/06/16 [History] Metoprolol XL (24 HR) Succ [Toprol Xl] 25 mg PO DAILY #30 tab.er.24h 09/11/16 [ Rx] Multivit with Iron-Minerals [Compete] 1 each PO DAILY 12/26/16 [History] Acetaminophen [Tylenol] 650 mg PO Q6HR PRN tablet 12/29/16 [Rx] Ascorbic Acid [Vitamin C] 500 mg PO 0630 tablet 12/29/16 [Rx] Ferrous Sulfate 325 mg PO 0630 tablet 12/29/16 [Rx] Verapamil ER (24 HR) [Calan SR] 180 mg PO DAILY #30 tablet.er 01/11/17 [Rx] Atorvastatin [Lipitor] 10 mg PO HS 01/23/17 [History] Chlorthalidone 25 mg PO DAILY 01/23/17 [History] Citalopram [CeleXA] 20 mg PO DAILY 01/23/17 [History] Donepezil HCl [Aricept] 5 mg PO HS 01/23/17 [History] Glimepiride [Amaryl] 2 mg PO 0800 01/23/17 [History] Insulin Glargine,Hum.rec.anlog [Basaglar Kittyikpen U-100] 25 unit SQ HS 01/23/17 [ History] Linagliptin [Tradjenta] 5 mg PO DAILY 01/23/17 [History] 3 Allergy/AdvReac Type Severity Reaction Status Date / Time codeine Allergy Rash Verified 12/25/16 20:01 All Systems PM: A 10-system review of systems was performed and is negative for pertinent findings except as documented above in the HPI. Review of systems: ROS 14 point review of systems reviewed as best as possible given presentation. Pertinent positive or negative as per HPI or otherwise reviewed as negative - Constitutional Vitals: Temp Pulse Resp BP Pulse Ox 99.1 F 87 15 142/61 98 01/23/17 19:17 01/23/17 19:17 01/23/17 19:17 01/23/17 19:17 01/23/17 19:17 Exam: General - AAO x 3 Psych - Appropriate affect/speech. No agitation Eyes - BELIA. Eye lids intact. No scleral icterus Neuro - No gross peripheral or central neuro deficits on inspection. He is hard of hearing Heart - Sinus. RRR. S1 and S2 present. No added HS/murmurs appreciated. No elevated JVD appreciated. Lung - Adequate air entry b/l, No crackles/wheezes appreciated GI - Lower abdominal pain - diffuse. No guarding or rigidity. No hepatosplenomegaly/ascites. BS+ - No CVA/suprapubic tenderness or palpable bladder distension Skin - Intact. No rash/petechiae/ecchymosis. Warm extremities
[2017-01-23] MEDS: Vancomycin Oral Soln 250 MG/5 ML UDC PO SCH (23:05)
[2017-01-23] MEDS: 0.9 % Sodium Chloride 1,000 ML IVC SCH (23:06)
[2017-01-23] MEDS: MetroNIDAZOLE 500 MG/100 ML 500 MG/100 ML BAG IVPB SCH (23:06)
[2017-01-24 04:06] LABS: Hematocrit 33.6 % (35.3-44.9); Hemoglobin 10.6 g/dL (11.5-15.4); Mean Corpuscular HGB Conc 31.5 g/dL (31.6-35.5); Mean Corpuscular Hemoglobin 25.9 pg (28.0-33.3); Mean Corpuscular Volume 82.2 fL (83.0-100.0); Mean Platelet Volume 11.6 fL (9.4-12.4); Platelet Count 273 K/mcL (140-400); Red Blood Count 4.09 M/mcL (3.82-4.97); Red Cell Distribution Width 14.6 % (11.5-14.5)
[2017-01-24 04:17] LABS: BUN/Creatinine Ratio 26 (6-26); Blood Urea Nitrogen 27 mg/dL (7-20); Calcium 7.8 mg/dL (8.6-10.8); Carbon Dioxide 22 mEq/L (19-29); Chloride 104 mEq/L (98-109); Glucose 75 mg/dL (70-99); Magnesium 1.6 mg/dL (1.6-2.6); Osmolality,Calculated 284 (280-300); Potassium 3.2 mEq/L (3.5-4.5); Sodium 135 mEq/L (136-145); eGFR For African Americans > 60 (> 60); eGFR For Non-African Americans 51 (> 60)
[2017-01-24 04:27] LABS: Basophils # 0.5 K/mcL (0.0-0.2); Eosinophils # 0.5 K/mcL (0.0-0.6); Lymphocytes # 4.5 K/mcL (0.6-4.6); Neutrophils # 19.3 K/mcL (1.6-8.9); Platelet Estimate Normal (Normal)
[2017-01-24] MEDS: Ascorbic Acid 500 MG TABLET PO SCH (05:30)
[2017-01-24] MEDS: 0.9 % Sodium Chloride 1,000 ML IVC SCH (07:47)
[2017-01-24] MEDS: MetroNIDAZOLE 500 MG/100 ML 500 MG/100 ML BAG IVPB SCH (07:47)
[2017-01-24] MEDS: Insulin LISPRO 300 UNITS/3 ML VIAL SQ SCH ×4 (07:47→21:16)
[2017-01-24] MEDS: Verapamil ER (24 HR) 180 MG TABLET.ER PO SCH (07:48)
[2017-01-24] MEDS: Levothyroxine 25 MCG TABLET PO SCH (07:48)
[2017-01-24] MEDS: Carbidopa/Levodopa 25/100 TABLET PO SCH ×3 (07:48→21:03)
[2017-01-24] MEDS: Metoprolol XL (24 HR) Succ 25 MG TAB.ER.24H PO SCH (07:48)
[2017-01-24] MEDS: Vancomycin Oral Soln 250 MG/5 ML UDC PO SCH ×4 (07:49→21:03)
[2017-01-24] MEDS ORDERED: Potassium Chloride Elixir 20 MEQ/15 ML UDC PO ONE (07:59)
[2017-01-24] MEDS ORDERED: (Linagliptin [Tradjenta] 5 MG) PO SCH (09:00)
--- NOTE | 2017-01-24 09:58 | Internal Med Progress Note ---
Date of Encounter: 01/24/17 Time of Encounter: 09:56 - Assessment and plan (1) C. difficile colitis Current Visit: Yes Status: Acute Assessment and plan: first episode of recurrence after being treated for 2 weeks of antibiotics with oral vancomycin and Dificid, completing the course on 01/08/17. Continues to have significant watery diarrhea, abdominal cramping, leukocytosis, low- grade fever and electrolyte abnormalities. Given her elderly age, will treat with tapering pulsed dose of oral vancomycin. Continue by mouth vancomycin, decreased the dose to 125 mg 4 times a day. Diet as tolerated. Supportive care with IV hydration, when necessary antiemetics, pain control with when necessary IV morphine. Monitor and replete electrolytes. CODE STATUS discussed with patient's daughter, who is her medical power of litigation attorney. Patient wishes to be DNR Comfort [facility]/DNI, daughter lost her paperwork during her previous rehabilitation admission. environmental services director to assist with repeat paperwork. (2) COPD (chronic obstructive pulmonary disease) Current Visit: Yes Status: Chronic Assessment and plan: Not in acute exacerbation. Continue when necessary bronchodilators and supplemental oxygen. Qualifiers: COPD type: unspecified COPD Qualified Code(s): J44.9 - Chronic obstructive pulmonary disease, unspecified (3) CKD (chronic kidney disease) Current Visit: Yes Status: Chronic Assessment and plan: Serum creatinine at baseline. Continue to monitor closely. Qualifiers: Chronic kidney disease stage: stage 3 (moderate) Qualified Code(s): N18.3 - Chronic kidney disease, stage 3 (moderate) (4) Parkinson disease Current Visit: Yes Status: Chronic Assessment and plan: Continue Sinemet. (5) Hypothyroidism Current Visit: Yes Status: Chronic Qualifiers: Hypothyroidism type: unspecified Qualified Code(s): E03.9 - Hypothyroidism , unspecified (6) Diabetes mellitus Current Visit: Yes Status: Chronic Assessment and plan: Blood sugars noted to be elevated. Start home dose of basal insulin. Continue Accu-Chek blood glucose monitoring with sliding scale insulin. Diabetic diet as tolerated. Qualifiers: Diabetes mellitus type: type 2 Diabetes mellitus complication detail: with chronic kidney disease Diabetes mellitus fdc insulin use: with terminal block assembler use Chronic kidney disease stage: stage 3 (moderate) Qualified Code(s) : E11.22 - Type 2 diabetes mellitus with diabetic chronic kidney disease; N18.3 - Chronic kidney disease, stage 3 (moderate); N18.3 - Chronic kidney disease, stage 3 (moderate); Z79.4 - vermin exterminator (current) use of insulin; Z79.4 - vermin exterminator (current) use of insulin; Z79.4 - alf (current) use of insulin; Z79.4 - alf (current) use of insulin (7) Hypertension Current Visit: Yes Status: Chronic Qualifiers: Hypertension type: essential hypertension Qualified Code(s): I10 - Essential (primary) hypertension - Subjective Interval history: Reports diffuse abdominal pain and nausea, along with loose watery diarrhea; noted to have low grade fever last night; tolerates clear liquids; - Constitutional Vitals: Temp Pulse Resp BP Pulse Ox 98.4 F 89 16 128/65 97 01/24/17 07:40 01/24/17 07:40 01/24/17 07:40 01/24/17 07:40 01/24/17 08:23 General appearance: Present: A&O X 3 (very hard of hearing), answers questions appropriately - Respiratory Respiratory exam: Present: CTAB. Absent: accessory muscle use, rales, rhonchi, wheezes - Cardiovascular Cardiovascular exam: Present: RRR, +S1, +S2. Absent: diastolic murmur, gallop, rubs, systolic murmur - GI/Abdominal GI/Abdominal exam: Present: normal bowel sounds, soft (diffuse tenderness to light palpation), no peritoneal signs. Absent: distended, tenderness - Extremities Exam Extremities exam: Present: pedal edema, warm, radial pulses palpable and symmetrical. Absent: calf tenderness, cyanotic - Neurological Exam Neurological exam: Present: CN II-XII intact, oriented X3, no focal deficits. Absent: pronater drift, facial droop, speech deficit Internal Medicine: Result - Labs CBC & Chem 7: 01/24/17 03:57 01/24/17 03:57 Labs: Short CBC 01/24/17 Range/Units 03:57 WBC 24.8 H (4.3-11.1) K/mcL Hgb 10.6 L (11.5-15.4) g/dL Hct 33.6 L (35.3-44.9) % Plt Count 273 (140-400) K/mcL Neutrophils # 19.3 H (1.6-8.9) K/mcL BMP 01/24/17 03:57 Sodium 135 L Potassium 3.2 L Chloride 104 Carbon Dioxide 22 BUN 27 H D Creatinine 1.03 Glucose 75 Calcium 7.8 L Consult Discharge Plan - Plan Referrals: Mauro Smith MD [Primary Care Provider] -
[2017-01-24] MEDS: Insulin DETEMIR 100 UNIT/ML X5UNITS SQ SCH (21:04)
[2017-01-25 05:00] LABS: Basophils % 0.3 %
[2017-01-25 05:02] LABS: Basophils # 0.1 K/mcL (0.0-0.2); Eosinophils # 0.6 K/mcL (0.0-0.6); Eosinophils % 2.2 %; Hematocrit 34.9 % (35.3-44.9); Hemoglobin 10.6 g/dL (11.5-15.4); Immature Granulocytes % 0.9 % (0-4); Lymphocytes # 1.6 K/mcL (0.6-4.6); Lymphocytes % 6.3 %; Mean Corpuscular HGB Conc 30.4 g/dL (31.6-35.5); Mean Corpuscular Volume 82.3 fL (83.0-100.0); Mean Platelet Volume 11.6 fL (9.4-12.4); Monocytes # 0.7 K/mcL (0.0-1.3); Monocytes % 2.8 %; Neutrophils # 22.4 K/mcL (1.6-8.9); Platelet Count 297 K/mcL (140-400); Red Blood Count 4.24 M/mcL (3.82-4.97); Red Cell Distribution Width 14.9 % (11.5-14.5); Segmented Neutrophils % 87.5 %
[2017-01-25 05:14] LABS: Calcium 8.1 mg/dL (8.6-10.8); Magnesium 1.7 mg/dL (1.6-2.6); Potassium 3.3 mEq/L (3.5-4.5)
[2017-01-25 06:06] LABS: Burr Cells 1+ (Not Present); Platelet Estimate Normal (Normal)
[2017-01-25] MEDS: Ascorbic Acid 500 MG TABLET PO SCH (06:37)
[2017-01-25] MEDS: Insulin LISPRO 300 UNITS/3 ML VIAL SQ SCH ×4 (08:42→21:19)
[2017-01-25] MEDS: Levothyroxine 25 MCG TABLET PO SCH (08:50)
[2017-01-25] MEDS: Metoprolol XL (24 HR) Succ 25 MG TAB.ER.24H PO SCH (08:50)
[2017-01-25] MEDS: Insulin DETEMIR 100 UNIT/ML X5UNITS SQ SCH ×3 (08:50→21:18)
[2017-01-25] MEDS: Verapamil ER (24 HR) 180 MG TABLET.ER PO SCH (08:50)
[2017-01-25] MEDS: Carbidopa/Levodopa 25/100 TABLET PO SCH ×3 (08:50→21:09)
[2017-01-25] MEDS: Vancomycin Oral Soln 250 MG/5 ML UDC PO SCH ×4 (08:51→21:10)
[2017-01-25] MEDS ORDERED: Potassium Chloride Elixir 20 MEQ/15 ML UDC PO ONE (10:11)
--- NOTE | 2017-01-25 10:29 | Internal Med Progress Note ---
Date of Encounter: 01/25/17 Time of Encounter: 10:28 - Assessment and plan (1) C. difficile colitis Current Visit: Yes Status: Acute Assessment and plan: first episode of recurrence after being treated for 2 weeks of antibiotics with oral vancomycin and Dificid, completing the course on 01/08/17. Improved slightly. Continues to have significant watery diarrhea, and leukocytosis. Given her elderly age, will treat with tapering pulsed dose of oral vancomycin. Continue by mouth vancomycin 125 mg 4 times a day- day 2. Diet as tolerated. Supportive care with IV hydration, when necessary antiemetics, pain control with when necessary IV morphine. Monitor and replete electrolytes. (2) COPD (chronic obstructive pulmonary disease) Current Visit: Yes Status: Chronic Assessment and plan: Not in acute exacerbation. Continue when necessary bronchodilators and supplemental oxygen. Qualifiers: COPD type: unspecified COPD Qualified Code(s): J44.9 - Chronic obstructive pulmonary disease, unspecified (3) CKD (chronic kidney disease) Current Visit: Yes Status: Chronic Assessment and plan: Serum creatinine at baseline. Continue to monitor closely. Qualifiers: Chronic kidney disease stage: stage 3 (moderate) Qualified Code(s): N18.3 - Chronic kidney disease, stage 3 (moderate) (4) Parkinson disease Current Visit: Yes Status: Chronic Assessment and plan: Continue Sinemet. (5) Hypothyroidism Current Visit: Yes Status: Chronic Assessment and plan: Continue levothyroxine. Qualifiers: Hypothyroidism type: unspecified Qualified Code(s): E03.9 - Hypothyroidism , unspecified (6) Diabetes mellitus Current Visit: Yes Status: Chronic Assessment and plan: Blood sugars noted to be improving with fasting blood sugar 90. We will decrease basal insulin. Continue Accu-Chek blood glucose monitoring with sliding scale insulin. Diabetic diet as tolerated. Qualifiers: Diabetes mellitus type: type 2 Diabetes mellitus complication detail: with chronic kidney disease Diabetes mellitus intermission coordinator insulin use: with intermission coordinator use Chronic kidney disease stage: stage 3 (moderate) Qualified Code(s) : E11.22 - Type 2 diabetes mellitus with diabetic chronic kidney disease; N18.3 - Chronic kidney disease, stage 3 (moderate); N18.3 - Chronic kidney disease, stage 3 (moderate); Z79.4 - termite helper (current) use of insulin; Z79.4 - nursing home (current) use of insulin; Z79.4 - nursing home (current) use of insulin; Z79.4 - termite helper (current) use of insulin (7) Hypertension Current Visit: Yes Status: Chronic Qualifiers: Hypertension type: essential hypertension Qualified Code(s): I10 - Essential (primary) hypertension - Subjective Interval history: Reports slightly improved abdominal pain but continues to have nausea and watery diarrhea; no fever/chills; - Constitutional Vitals: Temp Pulse Resp BP Pulse Ox 97.5 F L 80 16 124/61 97 01/25/17 08:44 01/25/17 08:44 01/25/17 08:44 01/25/17 08:44 01/25/17 08:44 General appearance: Present: A&O X 3 (very hard of hearing), answers questions appropriately - Respiratory Respiratory exam: Present: CTAB. Absent: accessory muscle use, rales, rhonchi, wheezes - Cardiovascular Cardiovascular exam: Present: RRR, +S1, +S2. Absent: diastolic murmur, gallop, rubs, systolic murmur - GI/Abdominal GI/Abdominal exam: Present: hyperactive bowel sounds, soft (tenderness in RLQ and LLQ, central abdomen), no peritoneal signs. Absent: distended, tenderness - Extremities Exam Extremities exam: Present: pedal edema, warm, radial pulses palpable and symmetrical. Absent: calf tenderness, cyanotic Internal Medicine: Result - Labs CBC & Chem 7: 01/25/17 04:42 01/25/17 04:42 Labs: Short CBC 01/25/17 Range/Units 04:42 WBC 25.6 H (4.3-11.1) K/mcL Hgb 10.6 L (11.5-15.4) g/dL Hct 34.9 L (35.3-44.9) % Plt Count 297 (140-400) K/mcL Neutrophils # 22.4 H (1.6-8.9) K/mcL BMP 01/25/17 04:42 Sodium 135 L Potassium 3.3 L Chloride 105 Carbon Dioxide 24 BUN 22 H Creatinine 1.14 H Glucose 106 H Calcium 8.1 L - VTE Documentation of Mechanical Device: Intermittent pneumatic compression device Consult Discharge Plan - Plan Referrals: Mauro Smith MD [Primary Care Provider] -
[2017-01-25] MEDS: 0.9 % Sodium Chloride 1,000 ML IVC SCH (11:07)
[2017-01-26] MEDS: 0.9 % Sodium Chloride 1,000 ML IVC SCH (00:39)
[2017-01-26 05:43] LABS: Basophils # 0.1 K/mcL (0.0-0.2); Basophils % 0.4 %; Eosinophils # 0.7 K/mcL (0.0-0.6); Eosinophils % 3.2 %; Hemoglobin 11.3 g/dL (11.5-15.4); Immature Granulocytes % 0.8 % (0-4); Lymphocytes # 1.8 K/mcL (0.6-4.6); Lymphocytes % 8.1 %; Mean Corpuscular HGB Conc 30.5 g/dL (31.6-35.5); Mean Corpuscular Hemoglobin 25.6 pg (28.0-33.3); Mean Corpuscular Volume 83.9 fL (83.0-100.0); Mean Platelet Volume 11.3 fL (9.4-12.4); Monocytes # 0.6 K/mcL (0.0-1.3); Monocytes % 2.7 %; Neutrophils # 19.3 K/mcL (1.6-8.9); Platelet Count 303 K/mcL (140-400); Red Blood Count 4.41 M/mcL (3.82-4.97); Red Cell Distribution Width 14.7 % (11.5-14.5); Segmented Neutrophils % 84.8 %
[2017-01-26] MEDS: Ascorbic Acid 500 MG TABLET PO SCH (05:48)
[2017-01-26 05:58] LABS: BUN/Creatinine Ratio 16 (6-26); Blood Urea Nitrogen 15 mg/dL (7-20); Calcium 7.7 mg/dL (8.6-10.8); Carbon Dioxide 22 mEq/L (19-29); Chloride 110 mEq/L (98-109); Glucose 99 mg/dL (70-99); Magnesium 1.3 mg/dL (1.6-2.6); Osmolality,Calculated 287 (280-300); Potassium 3.4 mEq/L (3.5-4.5); Sodium 138 mEq/L (136-145); eGFR For African Americans > 60 (> 60); eGFR For Non-African Americans 58 (> 60)
[2017-01-26] MEDS: Insulin LISPRO 300 UNITS/3 ML VIAL SQ SCH ×4 (09:11→22:08)
[2017-01-26] MEDS: Insulin DETEMIR 100 UNIT/ML X5UNITS SQ SCH ×2 (09:21→20:43)
[2017-01-26] MEDS: Levothyroxine 25 MCG TABLET PO SCH (09:21)
[2017-01-26] MEDS: Metoprolol XL (24 HR) Succ 25 MG TAB.ER.24H PO SCH (09:21)
[2017-01-26] MEDS: Verapamil ER (24 HR) 180 MG TABLET.ER PO SCH (09:21)
[2017-01-26] MEDS: Carbidopa/Levodopa 25/100 TABLET PO SCH ×3 (09:21→20:43)
[2017-01-26] MEDS: Vancomycin Oral Soln 250 MG/5 ML UDC PO SCH ×4 (09:33→20:44)
[2017-01-26] MEDS ORDERED: Potassium Chloride Elixir 20 MEQ/15 ML UDC PO ONE (09:59)
--- NOTE | 2017-01-26 10:30 | Internal Med Progress Note ---
Date of Encounter: 01/26/17 Time of Encounter: 10:28 - Assessment and plan (1) C. difficile colitis Current Visit: Yes Status: Acute Assessment and plan: first episode of recurrence after being treated for total 2 weeks of antibiotics with oral vancomycin and Dificid, completing the course on . ID evaluation noted, plan for 14 days of PO Vancomycin for first recurrence; improving slowly but still has diarrhea and leukocytosis; Continue by mouth vancomycin 125 mg 4 times a day- day 3. Start probiotics. Diet as tolerated. Supportive care with when necessary antiemetics, pain control with when necessary IV morphine. Monitor and replete electrolytes. PT/OT evaluation when stable; (2) COPD (chronic obstructive pulmonary disease) Current Visit: Yes Status: Chronic Assessment and plan: Not in acute exacerbation. Continue when necessary bronchodilators and supplemental oxygen. Qualifiers: COPD type: unspecified COPD Qualified Code(s): J44.9 - Chronic obstructive pulmonary disease, unspecified (3) CKD (chronic kidney disease) Current Visit: Yes Status: Chronic Assessment and plan: Serum creatinine at baseline. Continue to monitor closely. Qualifiers: Chronic kidney disease stage: stage 3 (moderate) Qualified Code(s): N18.3 - Chronic kidney disease, stage 3 (moderate) (4) Parkinson disease Current Visit: Yes Status: Chronic Assessment and plan: Continue Sinemet. (5) Hypothyroidism Current Visit: Yes Status: Chronic Qualifiers: Hypothyroidism type: unspecified Qualified Code(s): E03.9 - Hypothyroidism , unspecified (6) Diabetes mellitus Current Visit: Yes Status: Chronic Assessment and plan: Blood sugars fluctuating but overall acceptable. Continue Accu-Chek blood glucose monitoring with basal and sliding scale insulin. Diabetic diet as tolerated. Qualifiers: Diabetes mellitus type: type 2 Diabetes mellitus complication detail: with chronic kidney disease Diabetes mellitus exterminator helper insulin use: with penitentiary use Chronic kidney disease stage: stage 3 (moderate) Qualified Code(s) : E11.22 - Type 2 diabetes mellitus with diabetic chronic kidney disease; N18.3 - Chronic kidney disease, stage 3 (moderate); N18.3 - Chronic kidney disease, stage 3 (moderate); Z79.4 - terminal make up operator (current) use of insulin; Z79.4 - long-term (current) use of insulin; Z79.4 - terminal make up operator (current) use of insulin; Z79.4 - long-term (current) use of insulin (7) Hypertension Current Visit: Yes Status: Chronic Qualifiers: Hypertension type: essential hypertension Qualified Code(s): I10 - Essential (primary) hypertension (8) Hypokalemia Current Visit: Yes Status: Acute Assessment and plan: replace with oral potassium chloride and continue daily supplements; secondary to GI losses; (9) Hypomagnesemia Current Visit: Yes Status: Acute Assessment and plan: secondary to diarrhea; replace with IV Magnesium sulfate and start daily oral supplements; - Subjective Interval history: Reports abdominal cramping, but improving; still has loose stools but improving ? difficult to communicate due to hearing loss. No fever/chills, nausea, vomiting; - Constitutional Vitals: Temp Pulse Resp BP Pulse Ox 98.5 F 80 16 137/62 97 01/26/17 06:52 01/26/17 06:52 01/26/17 06:52 01/26/17 06:52 01/26/17 06:52 General appearance: Present: A&O X 3 (very hard of hearing), answers questions appropriately - Respiratory Respiratory exam: Present: CTAB, rhonchi (scattered rhonchi B/L). Absent: accessory muscle use, rales, wheezes - Cardiovascular Cardiovascular exam: Present: RRR, +S1, +S2. Absent: diastolic murmur, gallop, rubs, systolic murmur - GI/Abdominal GI/Abdominal exam: Present: normal bowel sounds, soft (mild tenderness in LLQ and central abdomen), no peritoneal signs. Absent: distended, tenderness - Extremities Exam Extremities exam: Present: pedal edema, warm, radial pulses palpable and symmetrical. Absent: calf tenderness, cyanotic Internal Medicine: Result - Labs CBC & Chem 7: 01/26/17 05:23 01/26/17 05:23 Labs: Short CBC 01/26/17 Range/Units 05:23 WBC 22.7 H (4.3-11.1) K/mcL Hgb 11.3 L (11.5-15.4) g/dL Hct 37.0 (35.3-44.9) % Plt Count 303 (140-400) K/mcL Neutrophils # 19.3 H (1.6-8.9) K/mcL BMP 01/26/17 05:23 Sodium 138 Potassium 3.4 L Chloride 110 H Carbon Dioxide 22 BUN 15 Creatinine 0.93 Glucose 99 Calcium 7.7 L - VTE Documentation of Mechanical Device: Intermittent pneumatic compression device Consult Discharge Plan - Plan Referrals: Mauro Smith MD [Primary Care Provider] -
--- NOTE | 2017-01-26 12:36 | Infectious Disease Consult ---
Date of Encounter: 01/26/17 Time of Encounter: 12:32 Assessment and Plan (1) Severe sepsis Status: Acute Assessment and plan: The patient had two SIRS criteria on admission with JET. Likely secondary to C. diff colitis. Improved. WBC trending down. Tachycardia has resolved. Renal function has normalized. No blood cultures were obtained. (2) C. difficile colitis Status: Acute Assessment and plan: Severe, uncomplicated. Stool was positive for C. diff. Recurrent --> the patient was treated with 7 days of PO Vanc and 7 days of Dificid last month. Etiology of recurrence not clear. Lactic acid normal. Continue Vancomycin 125 mg PO QID. Duration of treatment depends on the clinical picture, but would recommend 14 days of Vancomycin. Since this is the first recurrence, a Vanc taper is not indicated at this point. Start probiotics BID. Additional supportive measures per the primary team. Continue C. diff precautions per protocol. (3) Acute kidney injury Status: Acute Assessment and plan: Likely secondary to GI loss/dehydration and sepsis. Resolved. (4) Hypokalemia Status: Acute Assessment and plan: Likely secondary to GI loss. Management per the primary team. (5) Diabetes mellitus Status: Chronic Qualifiers: Diabetes mellitus type: type 2 Diabetes mellitus complication detail: with chronic kidney disease Diabetes mellitus terminologist insulin use: with terminologist use Chronic kidney disease stage: stage 3 (moderate) Qualified Code(s) : E11.22 - Type 2 diabetes mellitus with diabetic chronic kidney disease; N18.3 - Chronic kidney disease, stage 3 (moderate); N18.3 - Chronic kidney disease, stage 3 (moderate); Z79.4 - medical terminologist (current) use of insulin; Z79.4 - [facility] (current) use of insulin; Z79.4 - medical terminologist (current) use of insulin; Z79.4 - medical terminologist (current) use of insulin (6) Parkinson disease Status: Chronic (7) CKD (chronic kidney disease) Status: Chronic Qualifiers: Chronic kidney disease stage: stage 3 (moderate) Qualified Code(s): N18.3 - Chronic kidney disease, stage 3 (moderate) (8) COPD (chronic obstructive pulmonary disease) Status: Chronic Qualifiers: COPD type: unspecified COPD Qualified Code(s): J44.9 - Chronic obstructive pulmonary disease, unspecified (9) Hypertension Status: Chronic Qualifiers: Hypertension type: essential hypertension Qualified Code(s): I10 - Essential (primary) hypertension Infectious Disease HPI - Data of Consult Patient: new to practice Consult date: 01/26/17 Requesting Physician: Annika Zapata MD Primary Care Provider: Mauro Smith MD - Consult Narrative Reason for consult: C. diff History of present illness: Ms. Guzmán is a 81 year old female with a past medical history of COPD, CVA, dementia, diabetes, chronic kidney disease, and hypertension. The patient was managed in the hospital January 23 for C. difficile colitis. We are consulted January 26 for antibiotic recommendations regarding recurrent C. difficile. Briefly, the patient is an 81-year-old female with past medical history as stated above. The patient was recently hospitalized back in December after being diagnosed with C. difficile. She received a short course of oral vancomycin before she was switched to Dificid. It appears she received a total of 14 days of treatment. She states the diarrhea improved, but recurred after about 3 days of being off the medication. She states she's had numerous mucousy watery stools daily for the past 2 weeks. She reports lower abdominal cramping associated with the diarrhea area upon presentation to the emergency department , the patient was tachycardic and had leukocytosis and acute kidney injury. A CT of the abdomen and pelvis showed nonspecific pancolitis. Stool sent for evaluation and came back positive for C. difficile. The patient was originally started on IV Flagyl, by mouth vancomycin, and Dificid, but was later the escalated to oral vancomycin only. We have been asked to evaluate and make further recommendations. Since admission, the patient's leukocytosis has improved. She has been afebrile and tachycardia has resolved. Her renal function is back to normal. The patient states that overall she feels a little bit better. She states she continues to have several loose stools per day with associated abdominal pain. She reports some nausea in the mornings that seemed to improve as the day progresses. Currently, patient is on oral vancomycin. CC: Annika Zapata MD Past Med Surg Social Fam HX - Past Medical History Attestation: Yes The following information was validated with the patient. Source: patient, old records reviewed, nursing notes reviewed Medical history: COPD, CVA, dementia, diabetes, hyperlipidemia, hypertension, renal disease, other (C. difficile) Psychiatric history: anxiety, depression - Past Surgical History Surgical History: cholecystectomy - Social History Smoking Status: Former smoker Smokeless Tobacco Status: No Alcohol use: none Drug use: none Occupational status: unemployed Current living situation: Home, With Family Activity Level: Uses cane/walker Recent Out of Country Travel Within the Last 8 Weeks: No Exposure or Possible Exposure to Illness During Travel: No - Family History Father Family Member Ethnicity: Non- Living Status: Hx Family Cancer: Yes Brother Family Member Ethnicity: Non- Living Status: Hx Family Cancer: Yes (Throat lung) Hx Family Endocrine Disorder: Yes (DM) Sister Family Member Ethnicity: Non- Living Status: Still Living Hx Family Cancer: Yes (Breast CA, Dbl Mastectomy) Hx Family Endocrine Disorder: Yes (DM) Mother Family Member Ethnicity: Non- Living Status: Hx Family Cardiac Disorders: No Hx Family Respiratory Disorders: No Hx Family Cancer: No Hx Family GI Disorders: No Hx Family Endocrine Disorder: Yes Hx Family Neuromuscular Disorders: No Hx Family Neurologic Disorders: No Hx Family HEENT Disorders: No Hx Family Autoimmune Disorders: No Infectious Disease-CN:Meds Levothyroxine [Synthroid] 25 mcg PO QAM 02/21/15 [History] Carbidopa/Levodopa [Carbidopa-Levodopa 25-100 Tab] 1 each PO TID 08/20/16 [ History] Cranberry Conc/C/Bacill Coag [Azo Cranberry Tablet] 1 each PO DAILY PRN [History] Fenofibrate Nanocrystallized [Tricor] 48 mg PO QPM 08/20/16 [History] Insulin ASPART [NovoLOG] 0 unit SQ TIDWM 09/06/16 [History] Metoprolol XL (24 HR) Succ [Toprol Xl] 25 mg PO DAILY #30 tab.er.24h 09/11/16 [ Rx] Multivit with Iron-Minerals [Compete] 1 each PO DAILY 12/26/16 [History] Acetaminophen [Tylenol] 650 mg PO Q6HR PRN tablet 12/29/16 [Rx] Ascorbic Acid [Vitamin C] 500 mg PO 0630 tablet 12/29/16 [Rx] Ferrous Sulfate 325 mg PO 0630 tablet 12/29/16 [Rx] Verapamil ER (24 HR) [Calan SR] 180 mg PO DAILY #30 tablet.er 01/11/17 [Rx] Atorvastatin [Lipitor] 10 mg PO HS 01/23/17 [History] Chlorthalidone 25 mg PO DAILY 01/23/17 [History] Citalopram [CeleXA] 20 mg PO DAILY 01/23/17 [History] Donepezil HCl [Aricept] 5 mg PO HS 01/23/17 [History] Glimepiride [Amaryl] 2 mg PO 0800 01/23/17 [History] Insulin Glargine,Hum.rec.anlog [Basaglar Kwikpen U-100] 25 unit SQ HS 01/23/17 [ History] Linagliptin [Tradjenta] 5 mg PO DAILY 01/23/17 [History] 3 Allergy/AdvReac Type Severity Reaction Status Date / Time codeine Allergy Rash Verified 12/25/16 20:01 All systems: reviewed and no additional remarkable complaints except as stated Exam - Constitutional Vitals: Temp Pulse Resp BP Pulse Ox 99.2 F 90 12 121/70 97 01/26/17 12:20 01/26/17 12:20 01/26/17 12:20 01/26/17 12:20 01/26/17 12:20 General appearance: average body habitus, cooperative, no acute distress - Head Head exam: Present: atraumatic, normal inspection, normocephalic - Eye Eye exam: Present: EOMI, normal appearance, PERRL Pupils: Present: normal accommodation - ENT ENT exam: Present: mucous membranes moist - Neck Neck exam: Present: normal inspection - Respiratory Respiratory exam: Present: CTAB. Absent: rales, respiratory distress, rhonchi, wheezes - Cardiovascular Cardiovascular exam: Present: RRR, +S1, +S2 - GI/Abdominal GI/Abdominal exam: Present: distended, normal bowel sounds, soft, tenderness ( Generalized) - Extremities Exam Extremities exam: Present: normal inspection. Absent: joint swelling, pedal edema, tenderness - Neurological Exam Neurological exam: Present: alert, oriented X3, no focal deficits - Psychiatric Psychiatric exam: Present: normal affect, normal mood - Skin Skin exam: Present: dry, intact, normal color, warm Infectious Disease CN: Results - Labs CBC & Chem 7: 01/26/17 05:23 01/26/17 05:23 - VTE Documentation of Mechanical Device: Intermittent pneumatic compression device Consult Discharge Plan - Plan Referrals: Mauro Smith MD [Primary Care Provider] -
[2017-01-26] MEDS: Ipratropium/Albuterol Neb 3 ML IH PRN (17:55)
[2017-01-26] MEDS: Lactobacillus 1 EACH CAP.SPRINK PO SCH (20:43)
[2017-01-27 04:39] LABS: Basophils # 0.1 K/mcL (0.0-0.2); Basophils % 0.4 %; Eosinophils # 0.6 K/mcL (0.0-0.6); Eosinophils % 3.2 %; Hematocrit 35.9 % (35.3-44.9); Hemoglobin 10.9 g/dL (11.5-15.4); Immature Granulocytes % 1.3 % (0-4); Immature Platelets 5.6 % (1.1-6.1); Lymphocytes # 1.8 K/mcL (0.6-4.6); Lymphocytes % 9.2 %; Mean Corpuscular HGB Conc 30.4 g/dL (31.6-35.5); Mean Corpuscular Hemoglobin 25.2 pg (28.0-33.3); Mean Corpuscular Volume 82.9 fL (83.0-100.0); Mean Platelet Volume 11.6 fL (9.4-12.4); Monocytes # 0.6 K/mcL (0.0-1.3); Monocytes % 3.4 %; Neutrophils # 15.7 K/mcL (1.6-8.9); Platelet Count 325 K/mcL (140-400); Red Blood Count 4.33 M/mcL (3.82-4.97); Red Cell Distribution Width 14.7 % (11.5-14.5); Segmented Neutrophils % 82.5 %
[2017-01-27 04:54] LABS: BUN/Creatinine Ratio 17 (6-26); Blood Urea Nitrogen 17 mg/dL (7-20); Carbon Dioxide 21 mEq/L (19-29); Chloride 110 mEq/L (98-109); Glucose 116 mg/dL (70-99); Magnesium 1.8 mg/dL (1.6-2.6); Osmolality,Calculated 287 (280-300); Potassium 3.8 mEq/L (3.5-4.5); Sodium 137 mEq/L (136-145); eGFR For African Americans > 60 (> 60); eGFR For Non-African Americans 52 (> 60)
[2017-01-27] MEDS: Ascorbic Acid 500 MG TABLET PO SCH (06:01)
[2017-01-27] MEDS: Insulin LISPRO 300 UNITS/3 ML VIAL SQ SCH ×5 (08:21→20:32)
[2017-01-27] MEDS: Vancomycin Oral Soln 250 MG/5 ML UDC PO SCH ×4 (08:22→20:33)
[2017-01-27] MEDS: Insulin DETEMIR 100 UNIT/ML X5UNITS SQ SCH ×2 (08:23→20:33)
[2017-01-27] MEDS: Lactobacillus 1 EACH CAP.SPRINK PO SCH ×2 (08:23→20:34)
[2017-01-27] MEDS: Metoprolol XL (24 HR) Succ 25 MG TAB.ER.24H PO SCH (08:24)
[2017-01-27] MEDS: Levothyroxine 25 MCG TABLET PO SCH (08:24)
[2017-01-27] MEDS: Magnesium Oxide 400 MG TABLET PO SCH (08:24)
[2017-01-27] MEDS: Carbidopa/Levodopa 25/100 TABLET PO SCH ×3 (08:24→20:33)
[2017-01-27] MEDS: Verapamil ER (24 HR) 180 MG TABLET.ER PO SCH (08:24)
[2017-01-27] MEDS: Ipratropium/Albuterol Neb 3 ML IH PRN (12:05)
--- NOTE | 2017-01-27 12:43 | Internal Med Progress Note ---
Date of Encounter: 01/27/17 Time of Encounter: 12:41 - Assessment and plan (1) C. difficile colitis Current Visit: Yes Status: Acute Assessment and plan: first episode of recurrence after being treated for total 2 weeks of antibiotics with oral vancomycin and Dificid, completing the course on . ID evaluation noted, plan for 14 days of PO Vancomycin for first recurrence; improving diarrhea and leukocytosis; Continue by mouth Vancomycin 125 mg 4 times a day- day 4. On probiotics. Diet as tolerated. Supportive care with when necessary antiemetics, pain control with when necessary IV morphine. Monitor and replete electrolytes, currently normal. PT/OT evaluation when stable; daughter was initially agreeable to having the patient discharged back home with [facility]; today she reports being unable to care for the patient at home and requests ECF placement; patient is upset with this news and is in tears; will involve director of social media marketing for safe discharge; comfort offered to the patient; (2) COPD (chronic obstructive pulmonary disease) Current Visit: Yes Status: Chronic Assessment and plan: Not in acute exacerbation, but noted to be wheezing today after being emotionally upset. Continue when necessary bronchodilators and supplemental oxygen. Qualifiers: COPD type: unspecified COPD Qualified Code(s): J44.9 - Chronic obstructive pulmonary disease, unspecified (3) CKD (chronic kidney disease) Current Visit: Yes Status: Chronic Assessment and plan: Serum creatinine at baseline. Continue to monitor closely. Qualifiers: Chronic kidney disease stage: stage 3 (moderate) Qualified Code(s): N18.3 - Chronic kidney disease, stage 3 (moderate) (4) Parkinson disease Current Visit: Yes Status: Chronic Assessment and plan: Continue Sinemet. (5) Hypothyroidism Current Visit: Yes Status: Chronic Assessment and plan: Continue levothyroxine. Qualifiers: Hypothyroidism type: unspecified Qualified Code(s): E03.9 - Hypothyroidism , unspecified (6) Diabetes mellitus Current Visit: Yes Status: Chronic Assessment and plan: Blood sugars noted to be elevated. Continue Accu-Chek blood glucose monitoring with basal and sliding scale insulin. Will add nutritional insulin. Diabetic diet as tolerated. Qualifiers: Diabetes mellitus type: type 2 Diabetes mellitus complication detail: with chronic kidney disease Diabetes mellitus roasterman insulin use: with roasterman use Chronic kidney disease stage: stage 3 (moderate) Qualified Code(s) : E11.22 - Type 2 diabetes mellitus with diabetic chronic kidney disease; N18.3 - Chronic kidney disease, stage 3 (moderate); N18.3 - Chronic kidney disease, stage 3 (moderate); Z79.4 - nursing home (current) use of insulin; Z79.4 - exterminator helper termite (current) use of insulin; Z79.4 - nursing home (current) use of insulin; Z79.4 - exterminator helper termite (current) use of insulin (7) Hypertension Current Visit: Yes Status: Chronic Qualifiers: Hypertension type: essential hypertension Qualified Code(s): I10 - Essential (primary) hypertension (8) Hypokalemia Current Visit: Yes Status: Resolved (9) Hypomagnesemia Current Visit: Yes Status: Resolved - Subjective Interval history: Reports feeling much better, tolerates solid diet, improving diarrhea; improved abdominal cramps; Has been cheerful when visiting with family; later was found to be in tears as her daughter wanted her to be placed in ECF as she cannot take care of her at home; patient wants to go home at this time; - Constitutional Vitals: Temp Pulse Resp BP Pulse Ox 98.5 F 79 19 125/55 98 01/27/17 12:07 01/27/17 12:07 01/27/17 12:07 01/27/17 12:07 01/27/17 12:07 General appearance: Present: A&O X 3 (very hard of hearing), answers questions appropriately - Respiratory Respiratory exam: Present: CTAB, wheezes (B/L scattered wheezing). Absent: accessory muscle use, rales, rhonchi - Cardiovascular Cardiovascular exam: Present: RRR, +S1, +S2. Absent: diastolic murmur, gallop, rubs, systolic murmur - GI/Abdominal GI/Abdominal exam: Present: normal bowel sounds, soft, no peritoneal signs. Absent: distended, tenderness Internal Medicine: Result - Labs CBC & Chem 7: 01/27/17 04:05 01/27/17 04:05 Labs: Short CBC 01/27/17 Range/Units 04:05 WBC 19.0 H (4.3-11.1) K/mcL Hgb 10.9 L (11.5-15.4) g/dL Hct 35.9 (35.3-44.9) % Plt Count 325 (140-400) K/mcL Neutrophils # 15.7 H (1.6-8.9) K/mcL BMP 01/27/17 04:05 Sodium 137 Potassium 3.8 Chloride 110 H Carbon Dioxide 21 BUN 17 Creatinine 1.02 Glucose 116 H Calcium 8.0 L - VTE Documentation of Mechanical Device: Intermittent pneumatic compression device Consult Discharge Plan - Plan Referrals: Mauro Smith MD [Primary Care Provider] -
[2017-01-28 04:52] LABS: Basophils # 0.1 K/mcL (0.0-0.2); Basophils % 0.5 %; Eosinophils # 0.6 K/mcL (0.0-0.6); Eosinophils % 3.5 %; Hematocrit 36.2 % (35.3-44.9); Hemoglobin 10.9 g/dL (11.5-15.4); Immature Granulocytes % 1.6 % (0-4); Lymphocytes # 1.7 K/mcL (0.6-4.6); Lymphocytes % 10.4 %; Mean Corpuscular HGB Conc 30.1 g/dL (31.6-35.5); Mean Corpuscular Hemoglobin 25.1 pg (28.0-33.3); Mean Corpuscular Volume 83.4 fL (83.0-100.0); Mean Platelet Volume 11.4 fL (9.4-12.4); Monocytes # 0.6 K/mcL (0.0-1.3); Monocytes % 3.7 %; Neutrophils # 13.4 K/mcL (1.6-8.9); Platelet Count 322 K/mcL (140-400); Red Blood Count 4.34 M/mcL (3.82-4.97); Red Cell Distribution Width 14.9 % (11.5-14.5); Segmented Neutrophils % 80.3 %
[2017-01-28 05:03] LABS: BUN/Creatinine Ratio 21 (6-26); Blood Urea Nitrogen 22 mg/dL (7-20); Calcium 8.3 mg/dL (8.6-10.8); Carbon Dioxide 23 mEq/L (19-29); Chloride 109 mEq/L (98-109); Glucose 149 mg/dL (70-99); Magnesium 1.6 mg/dL (1.6-2.6); Osmolality,Calculated 290 (280-300); Phosphorous 3.2 mg/dL (2.3-4.7); Potassium 3.8 mEq/L (3.5-4.5); Sodium 137 mEq/L (136-145); eGFR For African Americans > 60 (> 60); eGFR For Non-African Americans 50 (> 60)
[2017-01-28] MEDS: Ascorbic Acid 500 MG TABLET PO SCH (06:03)
--- NOTE | 2017-01-28 09:53 | Internal Med Progress Note ---
Date of Encounter: 01/28/17 Time of Encounter: 09:51 - Assessment and plan (1) C. difficile colitis Current Visit: Yes Status: Acute Assessment and plan: first episode of recurrence after being treated for total 2 weeks of antibiotics with oral vancomycin and Dificid, completing the course on . ID consulted, plan for 14 days of PO Vancomycin for first recurrence; improving leukocytosis but continues to have diarrhea; Continue by mouth Vancomycin 125 mg 4 times a day- day 5. On probiotics. Diet as tolerated. Supportive care with when necessary antiemetics, pain control with when necessary IV morphine. Monitor and replete electrolytes, currently normal. PT/OT evaluation pending; d/w daughter- patient is now in agreement to ECF placement; social psychologist on board; (2) COPD (chronic obstructive pulmonary disease) Current Visit: Yes Status: Chronic Assessment and plan: Not in acute exacerbation. Continue when necessary bronchodilators and supplemental oxygen. Qualifiers: COPD type: unspecified COPD Qualified Code(s): J44.9 - Chronic obstructive pulmonary disease, unspecified (3) CKD (chronic kidney disease) Current Visit: Yes Status: Chronic Assessment and plan: Serum creatinine at baseline. Continue to monitor closely. Qualifiers: Chronic kidney disease stage: stage 3 (moderate) Qualified Code(s): N18.3 - Chronic kidney disease, stage 3 (moderate) (4) Parkinson disease Current Visit: Yes Status: Chronic Assessment and plan: Continue Sinemet. (5) Hypothyroidism Current Visit: Yes Status: Chronic Qualifiers: Hypothyroidism type: unspecified Qualified Code(s): E03.9 - Hypothyroidism , unspecified (6) Diabetes mellitus Current Visit: Yes Status: Chronic Assessment and plan: Blood sugars noted to be elevated. Continue Accu-Chek blood glucose monitoring, will increase basal and nutritional insulin, continue sliding scale insulin. Diabetic diet as tolerated. Qualifiers: Diabetes mellitus type: type 2 Diabetes mellitus complication detail: with chronic kidney disease Diabetes mellitus intermodal owner operator truck driver insulin use: with intermodal owner operator truck driver use Chronic kidney disease stage: stage 3 (moderate) Qualified Code(s) : E11.22 - Type 2 diabetes mellitus with diabetic chronic kidney disease; N18.3 - Chronic kidney disease, stage 3 (moderate); N18.3 - Chronic kidney disease, stage 3 (moderate); Z79.4 - intermediate (current) use of insulin; Z79.4 - intermodal owner operator truck driver (current) use of insulin; Z79.4 - intermediate (current) use of insulin; Z79.4 - intermodal owner operator truck driver (current) use of insulin (7) Hypertension Current Visit: Yes Status: Chronic Qualifiers: Hypertension type: essential hypertension Qualified Code(s): I10 - Essential (primary) hypertension (8) Hypokalemia Current Visit: Yes Status: Resolved (9) Hypomagnesemia Current Visit: Yes Status: Resolved - Subjective Interval history: Feels better but still has diarrhea, worse after eating; no fever/chills, nausea /vomiting; some abdominal pain/cramps persistent; - Constitutional Vitals: Temp Pulse Resp BP Pulse Ox 98.5 F 84 16 121/67 98 01/28/17 03:57 01/28/17 03:57 01/28/17 03:57 01/28/17 03:57 01/28/17 03:57 General appearance: Present: A&O X 3 (very hard of hearing), answers questions appropriately - Respiratory Respiratory exam: Present: decreased breath sounds (B/L decreased air entry), CTAB. Absent: accessory muscle use, rales, rhonchi, wheezes - Cardiovascular Cardiovascular exam: Present: RRR, +S1, +S2. Absent: diastolic murmur, gallop, rubs, systolic murmur - GI/Abdominal GI/Abdominal exam: Present: normal bowel sounds, soft, no peritoneal signs. Absent: distended, tenderness Internal Medicine: Result - Labs CBC & Chem 7: 01/28/17 03:30 01/28/17 03:30 Labs: Short CBC 01/28/17 Range/Units 03:30 WBC 16.7 H (4.3-11.1) K/mcL Hgb 10.9 L (11.5-15.4) g/dL Hct 36.2 (35.3-44.9) % Plt Count 322 (140-400) K/mcL Neutrophils # 13.4 H (1.6-8.9) K/mcL BMP 01/28/17 03:30 Sodium 137 Potassium 3.8 Chloride 109 Carbon Dioxide 23 BUN 22 H Creatinine 1.05 Glucose 149 H Calcium 8.3 L - VTE Documentation of Mechanical Device: Intermittent pneumatic compression device Consult Discharge Plan - Plan Referrals: aMuro Smith MD [Primary Care Provider] -
[2017-01-28] MEDS: Insulin LISPRO 300 UNITS/3 ML VIAL SQ SCH ×7 (10:24→21:35)
[2017-01-28] MEDS: Levothyroxine 25 MCG TABLET PO SCH (10:31)
[2017-01-28] MEDS: Lactobacillus 1 EACH CAP.SPRINK PO SCH ×2 (10:32→21:33)
[2017-01-28] MEDS: Verapamil ER (24 HR) 180 MG TABLET.ER PO SCH (10:32)
[2017-01-28] MEDS: Carbidopa/Levodopa 25/100 TABLET PO SCH ×3 (10:32→21:33)
[2017-01-28] MEDS: Metoprolol XL (24 HR) Succ 25 MG TAB.ER.24H PO SCH (10:32)
[2017-01-28] MEDS: Magnesium Oxide 400 MG TABLET PO SCH (10:32)
[2017-01-28] MEDS: Vancomycin Oral Soln 250 MG/5 ML UDC PO SCH ×4 (10:32→21:34)
[2017-01-28] MEDS: Insulin DETEMIR 100 UNIT/ML X5UNITS SQ SCH ×2 (10:32→21:58)
[2017-01-29 05:51] LABS: Basophils # 0.1 K/mcL (0.0-0.2); Basophils % 0.5 %; Eosinophils # 0.7 K/mcL (0.0-0.6); Eosinophils % 4.5 %; Hematocrit 35.9 % (35.3-44.9); Lymphocytes # 1.8 K/mcL (0.6-4.6); Lymphocytes % 10.6 %; Mean Corpuscular HGB Conc 30.6 g/dL (31.6-35.5); Mean Corpuscular Hemoglobin 25.4 pg (28.0-33.3); Mean Corpuscular Volume 82.9 fL (83.0-100.0); Mean Platelet Volume 10.9 fL (9.4-12.4); Monocytes # 0.7 K/mcL (0.0-1.3); Monocytes % 4.3 %; Neutrophils # 12.9 K/mcL (1.6-8.9); Platelet Count 318 K/mcL (140-400); Red Blood Count 4.33 M/mcL (3.82-4.97); Red Cell Distribution Width 14.7 % (11.5-14.5); Segmented Neutrophils % 78.1 %
[2017-01-29] MEDS: Ascorbic Acid 500 MG TABLET PO SCH (05:53)
[2017-01-29 06:05] LABS: BUN/Creatinine Ratio 25 (6-26); Blood Urea Nitrogen 21 mg/dL (7-20); Calcium 8.1 mg/dL (8.6-10.8); Carbon Dioxide 23 mEq/L (19-29); Chloride 110 mEq/L (98-109); Glucose 63 mg/dL (70-99); Magnesium 1.5 mg/dL (1.6-2.6); Osmolality,Calculated 289 (280-300); Potassium 3.5 mEq/L (3.5-4.5); Sodium 139 mEq/L (136-145); eGFR For African Americans > 60 (> 60); eGFR For Non-African Americans > 60 (> 60)
[2017-01-29] MEDS: Insulin LISPRO 300 UNITS/3 ML VIAL SQ SCH ×4 (07:43→18:11)
[2017-01-29] MEDS: Levothyroxine 25 MCG TABLET PO SCH (08:45)
[2017-01-29] MEDS: Carbidopa/Levodopa 25/100 TABLET PO SCH ×2 (08:46→18:05)
[2017-01-29] MEDS: Magnesium Oxide 400 MG TABLET PO SCH (08:46)
[2017-01-29] MEDS: Verapamil ER (24 HR) 180 MG TABLET.ER PO SCH (08:46)
[2017-01-29] MEDS: Metoprolol XL (24 HR) Succ 25 MG TAB.ER.24H PO SCH (08:46)
[2017-01-29] MEDS: Lactobacillus 1 EACH CAP.SPRINK PO SCH (08:46)
[2017-01-29] MEDS: Vancomycin Oral Soln 250 MG/5 ML UDC PO SCH ×3 (08:47→18:06)
[2017-01-29] MEDS: Insulin DETEMIR 100 UNIT/ML X5UNITS SQ SCH (08:47)
--- NOTE | 2017-01-29 09:41 | Internal Med Progress Note ---
Date of Encounter: 01/29/17 Time of Encounter: 09:41 - Assessment and plan (1) C. difficile colitis Current Visit: Yes Status: Acute Assessment and plan: first episode of recurrence after being treated for total 2 weeks of antibiotics with oral vancomycin and Dificid, completing the course on . ID consulted, plan for 14 days of PO Vancomycin for first recurrence; improving leukocytosis but continues to have diarrhea; Continue by mouth Vancomycin 125 mg 4 times a day- day 6. On probiotics. Diet as tolerated. Supportive care with when necessary antiemetics. Monitor and replete electrolytes, currently normal. PT/OT evaluation pending; social media manager on board; patient and family agreeable to ECF placement; (2) COPD (chronic obstructive pulmonary disease) Current Visit: Yes Status: Chronic Assessment and plan: Not in acute exacerbation. Continue when necessary bronchodilators and supplemental oxygen. Qualifiers: COPD type: unspecified COPD Qualified Code(s): J44.9 - Chronic obstructive pulmonary disease, unspecified (3) CKD (chronic kidney disease) Current Visit: Yes Status: Chronic Assessment and plan: Serum creatinine at baseline. Continue to monitor closely. Qualifiers: Chronic kidney disease stage: stage 3 (moderate) Qualified Code(s): N18.3 - Chronic kidney disease, stage 3 (moderate) (4) Parkinson disease Current Visit: Yes Status: Chronic Assessment and plan: Continue Sinemet. (5) Hypothyroidism Current Visit: Yes Status: Chronic Assessment and plan: Continue levothyroxine. Qualifiers: Hypothyroidism type: unspecified Qualified Code(s): E03.9 - Hypothyroidism , unspecified (6) Diabetes mellitus Current Visit: Yes Status: Chronic Assessment and plan: Blood sugars noted to be better controlled; had an episode of hypoglycemia this morning, improved with orange juice; Continue Accu-Chek blood glucose monitoring with basal bolus insulin regimen; discontinue nutritional insulin; Diabetic diet as tolerated. Qualifiers: Diabetes mellitus type: type 2 Diabetes mellitus complication detail: with chronic kidney disease Diabetes mellitus termite renewal inspector insulin use: with termite renewal inspector use Chronic kidney disease stage: stage 3 (moderate) Qualified Code(s) : E11.22 - Type 2 diabetes mellitus with diabetic chronic kidney disease; N18.3 - Chronic kidney disease, stage 3 (moderate); N18.3 - Chronic kidney disease, stage 3 (moderate); Z79.4 - local company intermodal truck driver (current) use of insulin; Z79.4 - nursing home (current) use of insulin; Z79.4 - nursing home (current) use of insulin; Z79.4 - local company intermodal truck driver (current) use of insulin (7) Hypertension Current Visit: Yes Status: Chronic Qualifiers: Hypertension type: essential hypertension Qualified Code(s): I10 - Essential (primary) hypertension (8) Hypokalemia Current Visit: Yes Status: Resolved (9) Hypomagnesemia Current Visit: Yes Status: Acute Assessment and plan: secondary to diarrhea; replace with IV Magnesium sulfate and continue daily oral supplements; - Subjective Interval history: Continues to have some diarrhea, had 2-3 bowel movements since this morning; improved abdominal pain and nausea; no fever/chills; tolerates oral diet; had low blood sugar this morning, improved with orange juice; - Constitutional Vitals: Temp Pulse Resp BP Pulse Ox 98.4 F 85 14 130/73 99 01/29/17 07:25 01/29/17 08:35 01/29/17 07:25 01/29/17 07:25 01/29/17 07:25 General appearance: Present: A&O X 3 (very hard of hearing), answers questions appropriately - Respiratory Respiratory exam: Present: decreased breath sounds (B/L decreased air entry), CTAB, rales (coarse crepts at left base). Absent: accessory muscle use, rhonchi , wheezes - Cardiovascular Cardiovascular exam: Present: RRR, +S1, +S2. Absent: diastolic murmur, gallop, rubs, systolic murmur - GI/Abdominal GI/Abdominal exam: Present: normal bowel sounds, soft, no peritoneal signs. Absent: distended, tenderness Internal Medicine: Result - Labs CBC & Chem 7: 01/29/17 05:29 01/29/17 05:29 Labs: Short CBC 01/29/17 Range/Units 05:29 WBC 16.5 H (4.3-11.1) K/mcL Hgb 11.0 L (11.5-15.4) g/dL Hct 35.9 (35.3-44.9) % Plt Count 318 (140-400) K/mcL Neutrophils # 12.9 H (1.6-8.9) K/mcL BMP 01/29/17 05:29 Sodium 139 Potassium 3.5 Chloride 110 H Carbon Dioxide 23 BUN 21 H Creatinine 0.83 Glucose 63 L Calcium 8.1 L - VTE Documentation of Mechanical Device: Intermittent pneumatic compression device Consult Discharge Plan - Plan Referrals: Mauro Smith MD [Primary Care Provider] -
[2017-01-29] MEDS: *HR* Heparin 5,000 UNIT/ML VIAL SQ SCH ×2 (10:33→18:16)
--- NOTE | 2017-01-29 13:59 | Infectious Disease Progress No ---
Date of Encounter: 01/29/17 Time of Encounter: 13:56 - Assessment and Plan (1) Severe sepsis Current Visit: Yes Status: Acute The patient had two SIRS criteria on admission with JET. Likely secondary to C. diff colitis. Improved. WBC trending down. Tachycardia has resolved. Renal function has normalized. No blood cultures were obtained. (2) C. difficile colitis Current Visit: Yes Status: Acute Severe, uncomplicated. Stool was positive for C. diff. Recurrent --> the patient was treated with 7 days of PO Vanc and 7 days of Dificid last month. Etiology of recurrence not clear. Lactic acid normal. Continue Vancomycin 125 mg PO QID. Duration of treatment depends on the clinical picture, but would recommend 14 days of Vancomycin. Since this is the first recurrence, a Vanc taper is not indicated at this point. Continue probiotics BID. Additional supportive measures per the primary team. Continue C. diff precautions per protocol. (3) Acute kidney injury Current Visit: Yes Status: Acute Likely secondary to GI loss/dehydration and sepsis. Resolved. (4) Hypokalemia Current Visit: Yes Status: Resolved Likely secondary to GI loss. Management per the primary team. (5) Diabetes mellitus Current Visit: Yes Status: Chronic Qualifiers: Diabetes mellitus type: type 2 Diabetes mellitus complication detail: with chronic kidney disease Diabetes mellitus assistant terminal manager insulin use: with assistant terminal manager use Chronic kidney disease stage: stage 3 (moderate) Qualified Code(s) : E11.22 - Type 2 diabetes mellitus with diabetic chronic kidney disease; N18.3 - Chronic kidney disease, stage 3 (moderate); N18.3 - Chronic kidney disease, stage 3 (moderate); Z79.4 - prison (current) use of insulin; Z79.4 - terminal block assembler (current) use of insulin; Z79.4 - terminal block assembler (current) use of insulin; Z79.4 - terminal block assembler (current) use of insulin (6) Parkinson disease Current Visit: Yes Status: Chronic (7) CKD (chronic kidney disease) Current Visit: Yes Status: Chronic Qualifiers: Chronic kidney disease stage: stage 3 (moderate) Qualified Code(s): N18.3 - Chronic kidney disease, stage 3 (moderate) (8) COPD (chronic obstructive pulmonary disease) Current Visit: Yes Status: Chronic Qualifiers: COPD type: unspecified COPD Qualified Code(s): J44.9 - Chronic obstructive pulmonary disease, unspecified (9) Hypertension Current Visit: Yes Status: Chronic Qualifiers: Hypertension type: essential hypertension Qualified Code(s): I10 - Essential (primary) hypertension - Subjective Interval history: Patient seen and examined. We can nature reviewed. No acute events noted overnight. Patient resting quietly in bed. States she still having diarrhea, but it is less frequent than what she was having at home. She denies any fevers or chills or rigors. She denies any chest pain, shortness of breath, or cough. She denies any nausea, vomiting, or constipation. She does report lower abdominal cramping when she has to have a bowel movement. She states her appetite is good and she denies any urinary complaints. She denies any oral thrush or skin lesions. Infect Dis PN-Objective Data - Labs CBC & Chem 7: 01/29/17 05:29 01/29/17 05:29 Labs: Laboratory Results - last 24 hr 01/28/17 01/28/17 01/28/17 12:10 15:45 21:20 WBC RBC Hgb Hct MCV MCH MCHC RDW Plt Count MPV Immature Gran % Seg Neutrophils % Lymphocytes % Monocytes % Eosinophils % Basophils % Neutrophils # Lymphocytes # Monocytes # Eosinophils # Basophils # Sodium Potassium Chloride Carbon Dioxide BUN Creatinine Est GFR ( Amer) Est GFR (Non-Af Amer) BUN/Creatinine Ratio Glucose POC Glucose 243 H 200 H 97 H Calculated Osmolality Calcium Magnesium 01/29/17 01/29/17 01/29/17 05:29 05:29 07:19 WBC 16.5 H RBC 4.33 Hgb 11.0 L Hct 35.9 MCV 82.9 L MCH 25.4 L MCHC 30.6 L RDW 14.7 H Plt Count 318 MPV 10.9 Immature Gran % 2.0 Seg Neutrophils % 78.1 Lymphocytes % 10.6 Monocytes % 4.3 Eosinophils % 4.5 Basophils % 0.5 Neutrophils # 12.9 H Lymphocytes # 1.8 Monocytes # 0.7 Eosinophils # 0.7 H Basophils # 0.1 Sodium 139 Potassium 3.5 Chloride 110 H Carbon Dioxide 23 BUN 21 H Creatinine 0.83 Est GFR ( Amer) > 60 Est GFR (Non-Af Amer) > 60 BUN/Creatinine Ratio 25 Glucose 63 L POC Glucose 67 Calculated Osmolality 289 Calcium 8.1 L Magnesium 1.5 L 01/29/17 01/29/17 08:12 11:30 WBC RBC Hgb Hct MCV MCH MCHC RDW Plt Count MPV Immature Gran % Seg Neutrophils % Lymphocytes % Monocytes % Eosinophils % Basophils % Neutrophils # Lymphocytes # Monocytes # Eosinophils # Basophils # Sodium Potassium Chloride Carbon Dioxide BUN Creatinine Est GFR ( Amer) Est GFR (Non-Af Amer) BUN/Creatinine Ratio Glucose POC Glucose 121 H 207 H Calculated Osmolality Calcium Magnesium Exam - Constitutional Vitals: Temp Pulse Resp BP Pulse Ox 98.8 F 88 16 120/70 99 01/29/17 10:11 01/29/17 10:11 01/29/17 10:11 01/29/17 10:11 01/29/17 10:11 General appearance: average body habitus, cooperative, no acute distress - Head Head exam: Present: atraumatic, normal inspection, normocephalic - Eye Eye exam: Present: EOMI, normal appearance, PERRL Pupils: Present: normal accommodation - ENT ENT exam: Present: mucous membranes moist - Neck Neck exam: Present: normal inspection - Respiratory Respiratory exam: Present: CTAB. Absent: rales, respiratory distress, rhonchi, wheezes - Cardiovascular Cardiovascular exam: Present: RRR, +S1, +S2 - GI/Abdominal GI/Abdominal exam: Present: distended, normal bowel sounds, soft, tenderness ( generalized) - Extremities Exam Extremities exam: Present: normal inspection. Absent: joint swelling, pedal edema, tenderness - Neurological Exam Neurological exam: Present: alert, oriented X3, no focal deficits - Psychiatric Psychiatric exam: Present: normal affect, normal mood - Skin Skin exam: Present: dry, intact, normal color, warm - VTE Documentation of Mechanical Device: Intermittent pneumatic compression device Consult Discharge Plan - Plan Referrals: Mauro Smith MD [Primary Care Provider] -
[2017-01-29 14:57] VITALS: BP 130/61
--- NOTE | 2017-01-29 16:48 | Discharge Summary ---
Date of Encounter: 01/29/17 Time of Encounter: 09:45 - Discharge Diagnosis (1) C. difficile colitis Priority: Primary Status: Acute (2) COPD (chronic obstructive pulmonary disease) Priority: Secondary Status: Chronic Qualifiers: COPD type: unspecified COPD Qualified Code(s): J44.9 - Chronic obstructive pulmonary disease, unspecified (3) CKD (chronic kidney disease) Priority: Secondary Status: Chronic Qualifiers: Chronic kidney disease stage: stage 3 (moderate) Qualified Code(s): N18.3 - Chronic kidney disease, stage 3 (moderate) (4) Parkinson disease Priority: Secondary Status: Chronic (5) Hypothyroidism Priority: Secondary Status: Chronic Qualifiers: Hypothyroidism type: unspecified Qualified Code(s): E03.9 - Hypothyroidism , unspecified (6) Diabetes mellitus Priority: Secondary Status: Chronic Qualifiers: Diabetes mellitus type: type 2 Diabetes mellitus complication detail: with chronic kidney disease Diabetes mellitus care home insulin use: with middle or intermediate school principal use Chronic kidney disease stage: stage 3 (moderate) Qualified Code(s) : E11.22 - Type 2 diabetes mellitus with diabetic chronic kidney disease; N18.3 - Chronic kidney disease, stage 3 (moderate); N18.3 - Chronic kidney disease, stage 3 (moderate); Z79.4 - halfway (current) use of insulin; Z79.4 - halfway (current) use of insulin; Z79.4 - halfway (current) use of insulin; Z79.4 - buttermaker (current) use of insulin (7) Hypertension Priority: Secondary Status: Chronic Qualifiers: Hypertension type: essential hypertension Qualified Code(s): I10 - Essential (primary) hypertension (8) Hypokalemia Priority: Primary Status: Resolved (9) Hypomagnesemia Priority: Primary Status: Acute - Discharge Medications Home Medications: Levothyroxine [Synthroid] 25 mcg PO QAM 02/21/15 [History] Carbidopa/Levodopa [Carbidopa-Levodopa 25-100 Tab] 1 each PO TID 08/20/16 [ History] Cranberry Conc/C/Bacill Coag [Azo Cranberry Tablet] 1 each PO DAILY PRN [History] Fenofibrate Nanocrystallized [Tricor] 48 mg PO QPM 08/20/16 [History] Insulin ASPART [NovoLOG] 0 unit SQ TIDWM 09/06/16 [History] Metoprolol XL (24 HR) Succ [Toprol Xl] 25 mg PO DAILY #30 tab.er.24h 09/11/16 [ Rx] Multivit with Iron-Minerals [Compete] 1 each PO DAILY 12/26/16 [History] Acetaminophen [Tylenol] 650 mg PO Q6HR PRN tablet 12/29/16 [Rx] Ascorbic Acid [Vitamin C] 500 mg PO 0630 tablet 12/29/16 [Rx] Ferrous Sulfate 325 mg PO 0630 tablet 12/29/16 [Rx] Verapamil ER (24 HR) [Calan SR] 180 mg PO DAILY #30 tablet.er 01/11/17 [Rx] Atorvastatin [Lipitor] 10 mg PO HS 01/23/17 [History] Chlorthalidone 25 mg PO DAILY 01/23/17 [History] Citalopram [CeleXA] 20 mg PO DAILY 01/23/17 [History] Donepezil HCl [Aricept] 5 mg PO HS 01/23/17 [History] Glimepiride [Amaryl] 2 mg PO 0800 01/23/17 [History] Insulin Glargine,Hum.rec.anlog [Basaglar Kwikpen U-100] 25 unit SQ HS 01/23/17 [ History] Linagliptin [Tradjenta] 5 mg PO DAILY 01/23/17 [History] Lactobacillus [Culturelle] 1 each PO BID cap.sprink 01/29/17 [Rx] Magnesium Oxide [Mag-Ox] 400 mg PO DAILY tablet 01/29/17 [Rx] Potassium Chloride 20 meq PO BIDWM tab.er.prt 01/29/17 [Rx] Vancomycin Oral Soln [Vancocin] 125 mg PO QID 9 Days udc 01/29/17 [Rx] Allergies/Adverse Reactions: 3 Allergy/AdvReac Type Severity Reaction Status Date / Time codeine Allergy Rash Verified 12/25/16 20:01 Date of admission: 01/24/17 06:56 Primary care physician: Mauro Smith MD Consults: 01/23/17 18:02 Consult to [facility] Counsel [CONS] Routine Reason for SW Consult: Pt michel [place] 01/23/17 22:00 Consult to Infectious Diseases [CONS] Routine Consulting Provider: [facility] [place] Reason for Consult: refractory cdiff ? Call Completed: No 01/28/17 08:01 Consult to Occupational Therapy [CONS] Routine Comment: Evaluate, develop and implement POC Reason for Consult: Deconditioning, weakness, c.diff colitis Consult to Physical Therapy [CONS] Routine Comment: Evaluate, develop and implement POC Reason for Consult: Deconditioning, weakness, c.diff colitis Discharging clinician: Annika Zapata Anticipated date of discharge: 01/29/17 - Patient Status Disposition: Transfer SNF Condition: Fair Functional capacity at discharge: uses cane/walker Overall status at discharge: patient is progressing back to baseline - Discharge Instructions Follow Up With: Mauro Smith MD [Primary Care Provider] - Additional Instructions: F/up with PCP in 1-2 weeks - Diet and Activity Activity: as per physical therapy, wear oxygen at all times Diet: diabetic diet, low fat, low cholesterol, low salt diet Hospital course: Ms. Guzmán is a 81 year old female - Time Spent with Patient Total time spent providing and/or coordinating discharge services: Greater than 30 minutes (45 min) - Constitutional Vitals: Temp Pulse Resp BP Pulse Ox 98.7 F 82 16 130/61 100 01/29/17 14:49 01/29/17 14:49 01/29/17 14:49 01/29/17 14:49 01/29/17 14:49 General appearance: Present: A&O X 3 (very hard of hearing), answers questions appropriately - Cardiovascular Cardiovascular exam: Present: RRR, +S1, +S2. Absent: diastolic murmur, gallop, rubs, systolic murmur - VTE Documentation of Mechanical Device: Intermittent pneumatic compression device
--- NOTE | 2017-01-29 16:50 | Physician Discharge Referral ---
ExtendedCare Referral Info Transfer To: [place] Provider in Charge: Annika Zapata Provider in Charge after Transfer: PCP Institutional Level of Care: Skilled - Diagnosis (1) C. difficile colitis Priority: Primary Status: Acute (2) COPD (chronic obstructive pulmonary disease) Priority: Secondary Status: Chronic (3) CKD (chronic kidney disease) Priority: Secondary Status: Chronic (4) Parkinson disease Priority: Secondary Status: Chronic (5) Hypothyroidism Priority: Secondary Status: Chronic (6) Diabetes mellitus Priority: Secondary Status: Chronic (7) Hypertension Priority: Secondary Status: Chronic (8) Hypokalemia Priority: Primary Status: Resolved (9) Hypomagnesemia Priority: Primary Status: Acute Expected Duration of Placement: 3 weeks Prognosis: Fair Aware of Diagnosis: Patient, Family - Transfer Medications Home Medications: Levothyroxine [Synthroid] 25 mcg PO QAM 02/21/15 [History] Carbidopa/Levodopa [Carbidopa-Levodopa 25-100 Tab] 1 each PO TID 08/20/16 [ History] Cranberry Conc/C/Bacill Coag [Azo Cranberry Tablet] 1 each PO DAILY PRN [History] Fenofibrate Nanocrystallized [Tricor] 48 mg PO QPM 08/20/16 [History] Insulin ASPART [NovoLOG] 0 unit SQ TIDWM 09/06/16 [History] Metoprolol XL (24 HR) Succ [Toprol Xl] 25 mg PO DAILY #30 tab.er.24h 09/11/16 [ Rx] Multivit with Iron-Minerals [Compete] 1 each PO DAILY 12/26/16 [History] Acetaminophen [Tylenol] 650 mg PO Q6HR PRN tablet 12/29/16 [Rx] Ascorbic Acid [Vitamin C] 500 mg PO 0630 tablet 12/29/16 [Rx] Ferrous Sulfate 325 mg PO 0630 tablet 12/29/16 [Rx] Verapamil ER (24 HR) [Calan SR] 180 mg PO DAILY #30 tablet.er 01/11/17 [Rx] Atorvastatin [Lipitor] 10 mg PO HS 01/23/17 [History] Chlorthalidone 25 mg PO DAILY 01/23/17 [History] Citalopram [CeleXA] 20 mg PO DAILY 01/23/17 [History] Donepezil HCl [Aricept] 5 mg PO HS 01/23/17 [History] Glimepiride [Amaryl] 2 mg PO 0800 01/23/17 [History] Insulin Glargine,Hum.rec.anlog [Patriciaaglar Katherinepen U-100] 25 unit SQ HS 01/23/17 [ History] Linagliptin [Tradjenta] 5 mg PO DAILY 01/23/17 [History] Lactobacillus [Culturelle] 1 each PO BID cap.sprink 01/29/17 [Rx] Magnesium Oxide [Mag-Ox] 400 mg PO DAILY tablet 01/29/17 [Rx] Potassium Chloride 20 meq PO BIDWM tab.er.prt 01/29/17 [Rx] Vancomycin Oral Soln [Vancocin] 125 mg PO QID 9 Days udc 01/29/17 [Rx] Allergies/Adverse Reactions: 3 Allergy/AdvReac Type Severity Reaction Status Date / Time codeine Allergy Rash Verified 12/25/16 20:01 - Respiratory Orders Oxygen / L per min (2L/min via [place]) Smoking Cessation: Smoking cessation has been advised. For more information, call the [employer] Tobacco Quit Line at 8-806-SYFY-NOW. - Advance Directives Living Will: Yes Power of Postpartum Rn: Yes (daughter) Code Status: DNR-Arrest/Don't Intubate - Mobility Orders Ambulate - Rehabiliation Orders Rehab Potential: Fair Rehab Orders: ROM Exercises, Evaluation for Physical Therapy, Evaluation for Occupational Therapy - Diet Orders No Concentrated Sweets (diabetic), Renal, Cardiac CERTIFICATION: I certify that the transfer of the above named patient to an Extended Care Facility is necessary for the continuing treatment of the diagnosis listed. The above information is true and accurate reflection of patient's current condition. Confidential - Redisclosure prohibited without a patient's written consent.
== END 2017-01-29 19:22 | DRG 872 ==
LOC: 3ANU → SUATTDRO 01-24 06:56
PROVIDERS: ADMIT Internal Medicine; ATTEND Internal Medicine